=== PATIENT | male | born 1945 | race Caucasian/White ===

== ENCOUNTER → 2018-12-06 09:16 | Outpatient (CLI) | payer OTHER, SELFPAY ==
--- NOTE | 2018-12-06 | DI.ECHO.S_ITS ---
[facility]---------+ [facility] +---------+ : : [address] : : : : [place] : : : : [phone] : : : : Phone: [phone]+ Echocardiogram Report + + :Name: YENY SANDERS Study Date: 12/06/2018 Height: 69 in : :[facility] Exam Location: [facility] Weight: 220 lb : : Gender: Male BSA: 2.2 m2 : :: 1945 Age: 73 yrs BP: 160/80 mmHg: :Reason For Study: Murmur : :Ordering Physician: Govind : :Mey Szymanski Performed By: Abby Page : :Referring: GOVIND TAPIA : + + Interpretation Summary Patient is atrially paced and ventricularly paced at a heart rate of 60 bpm. Normal left ventricular size; left ventricular thickness is at the upper limit of normal. There is mild dyssynchrony noted due to RV pacing. Ejection fraction is estimated at 50-55%. There is moderate left atrial enlargement. Otherwise normal chamber sizes. There is aortic sclerosis without stenosis. There is a pacing lead traversing the tricuspid valve with trace estimated tricuspid regurgitation. There is an incidentally noted hypoechoic space anterior to the heart. It is best appreciated on apical views and is most consistent with subcutaneous cyst or small lung cyst. There is no prior study available for comparison. Procedure: A two-dimensional transthoracic echocardiogram with color flow and Doppler was performed. The study quality was technically adequate. There is no prior echocardiogram noted for this patient. The patient has a paced rhythm. Left Ventricle: The left ventricle is normal in size. Left ventricular wall thickness is at the upper limits of normal. The ejection fraction is estimated to be 50-55%. There is a slight dyssynchronous contraction pattern due to the paced rhythm. Diastolic function could not be accurately assessed due to paced rhythm. Right Ventricle: The right ventricle is mildly dilated. There is a pacemaker lead in the right ventricle. The right ventricular systolic function is normal. Atria: The left atrium is moderately dilated. Right atrial size is normal. There is no Doppler evidence for an interatrial shunt. Mitral Valve: The mitral valve leaflets appear mildly thickened, but open well. There is trace mitral regurgitation. Aortic Valve: The aortic valve is trileaflet. The aortic valve opens well. There is trace aortic regurgitation. Tricuspid Valve: The tricuspid valve is normal in structure and function. There is trace tricuspid regurgitation. The right ventricular systolic pressure is estimated to be at least 30 mmHg based on an estimated right atrial pressure of 8 mm Hg. Pulmonic Valve: The pulmonic valve is not well visualized. There is trace pulmonic regurgitation. Great Vessels: The aortic root is normal size. The ascending aorta is mild- moderately enlarged. The pulmonary artery is not well visualized, but is probably normal size. The IVC is dilated (diameter is greater than 2.1 cm) yet it collapses greater than 50% with a sniff. This suggests a right atrial pressure of 8 mm Hg. Pericardium/ Pleura There is no pericardial effusion. MMode/2D Measurements & Calculations LVIDd: 4.5 cm LVOT diam: 2.3 cm LVIDs: 3.5 cm Ao root diam: 3.6 cm FS: 23.2 % asc Aorta Diam: 4.2 cm EPSS: 0.78 cm IVSd: 0.94 cm LVPWd: 1.1 cm LV posey. diameter/BSA (cm/m^2): 2.1 LV sys. diameter/BSA (cm/m^2): 1.6 LA A2 area: 24.0 cm2 RA long axis: 4.4 cm LA A4 area: 25.7 cm2 RA area: 18.1 cm2 LA length (vol): 5.8 cm RA vol: 63.6 ml LA vol: 90.3 ml RA : 29.6 ml/m2 LA vol index: 42.0 ml/m2 IVC diam: 2.2 cm RVD1 (basal): 4.4 cm RVD2 (mid): 4.3 cm TAPSE: 2.6 cm Doppler Measurements & Calculations Ao V2 max: 106.4 cm/sec LVOT Max Wilbur: 70.2 cm/sec Ao V2 mean: 77.1 cm/sec LV V1 max P.0 mmHg Ao max P.5 mmHg LV V1 VTI: 16.7 cm Ao mean P.6 mmHg JUAN(I,D): 2.8 cm2 Ao V2 VTI: 24.4 cm JUAN(V,D): 2.7 cm2 sev ratio: 0.69 JUAN indexed to BSA (cm^2/m^2): 1.3 MV E max wilbur: 70.4 cm/sec TR max wilbur: 234.1 cm/sec MV A max wilbur: 62.0 cm/sec TR max P.0 mmHg MV E/A: 1.1 PA V2 max: 60.5 cm/sec MV dec time: 0.21 sec PA V2 mean: 39.4 cm/sec MV P1/2t: 65.1 msec PA mean P.70 mmHg PA Accel Time: 0.06 sec MV P1/2t max wilbur: 70.5 cm/sec SV(LVOT): 67.7 ml MVA(P1/2t): 3.4 cm2 Electronically signed by: Govind Tapia M.D. on Reading Physician:12/07/2018 07:19 PM
== END ==
PROVIDERS: Visit Provider Internal Medicine
DX: R01.1 Cardiac murmur, unspecified (principal); I77.89 Other specified disorders of arteries and arterioles
CPT/HCPCS: 93306

== ENCOUNTER 2020-05-26 19:09 | Observation (INO) | payer OTHER, SELFPAY ==
[2020-05-26] VITALS (30 sets, daily range): BP systolic 97–126; BP diastolic 57–84; PULSE 100–109; RESP 11–28; TEMP 37.5; O2SAT 94–100; BMI 31.4
--- NOTE | 2020-05-26 19:19 | DI.RAD.S_ITS ---
PROCEDURE: XR CHEST 1V INDICATIONS: chest pain TECHNIQUE: One view of the chest was acquired. COMPARISON: [facility], , CHEST 1 VIEW, 06/07/2015, 12:04. FINDINGS: Surgical changes and devices: A left chest wall pacer is seen with intact leads.. Lungs and pleura: There is bibasilar atelectasis. No focal consolidation or mass. No pneumothorax or pleural effusion. No significant pulmonary vascular congestion. Mediastinum: Cardiomegaly is unchanged. Bones and chest wall: No suspicious bony lesions. Overlying soft tissues appear unremarkable. IMPRESSION: 1. Right basilar atelectasis. 2. Stable cardiomegaly. Dictated by: Chinedu White M.D. on 05/26/2020 at 19:52 Approved by: Chinedu White M.D. on 05/26/2020 at 19:54
--- NOTE | 2020-05-26 19:25 | ED_ITS ---
HPI - Chest Pain General Chief Complaint: Arrhythmia/Palpitations Stated Complaint: AFIB Time Seen by Provider: 05/26/20 19:18 Source: patient and EMS Limitations: no limitations History of Present Illness HPI narrative: Patient is a 74-year-old male with history of AFib and pacemaker presenting with chest discomfort and palpitations. He says it started around 430 or 5:00 a.m. this morning and woke him from his sleep. It has been ongoing for out today. He states now that he is in ER he overall feels better however he has a wide complex tachycardia paced rhythm on the monitor. It was initially intermittent however it is very persistent now. He says he still feels it. He actually says he has had this in the past but usually takes an extra dose of flecainide and resolves. This time it is not resolving. complaint: chest pain Onset (ago): day(s) (1) Duration: intermittent Treatments prior to arrival chest pain: none Related Data Home Medications Medication Instructions Recorded Confirmed clonazepam 0.5 mg PO TID PRN MDD 3 05/26/20 05/26/20 flecainide 150 mg PO Q12H 05/26/20 05/26/20 levothyroxine 137 mcg PO DAILY 05/26/20 05/26/20 metoprolol tartrate 50 mg PO BID 05/26/20 05/26/20 simvastatin 20 mg PO BEDTIME 05/26/20 05/26/20 tamsulosin 0.4 mg PO DAILY 05/26/20 05/26/20 Allergies Allergy/AdvReac Type Severity Reaction Status Date / Time No Known Drug Allergies Allergy Verified 05/26/20 19:49 Review of Systems Review of Systems Narrative: GENERAL: Denies chills, fatigue, malaise, fever, sweats, travel HEENT: Denies sinus pain, ear pain, sore throat, difficulty swallowing, neck pain RESPIRATORY: Denies dyspnea, cough, wheezing, hemoptysis, sputum. CARDIOVASCULAR: See HPI GASTROINTESTINAL: Denies nausea, vomiting, abdominal pain, diarrhea, constipation, melena. : Denies dysuria, frequency, incontinence, hematuria, urinary retention, flank pain. MUSCULOSKELETAL: Denies weakness, joint pain, or bony pain SKIN: No rash, no erythema, no pruritus NEUROLOGIC: Denies weakness, dizziness, headache, numbness, change in speech, confusion PSYCHIATRIC: No concerning psychosocial issues. 12 point review of systems is negative except for those stated above and HPI Patient History Medical History (Updated 05/27/20 @ 00:10 by BRENDA Kramer) Brain tumor History of thyroid irradiation Hypothyroidism Kidney stones Paroxysmal atrial fibrillation Surgical History (Updated 05/27/20 @ 00:10 by BRENDA Kramer) History of cataract surgery History of craniotomy History of cystoscopy History of hand surgery History of knee surgery History of lithotripsy History of permanent cardiac pacemaker placement Family History (Updated 05/27/20 @ 00:12 by BRENDA Kramer) Father Pneumonia Mother Cancer Brother Cancer Social History Smoking Status: Never smoker Exam Initial Vital Signs Initial Vital Signs: Vital Signs Temperature 99.5 F 05/26/20 19:19 Pulse Rate 105 H 05/26/20 19:19 Respiratory Rate 20 05/26/20 19:19 Blood Pressure 126/78 05/26/20 19:19 Pulse Oximetry 99 05/26/20 19:19 GENERAL: Alert pleasant older gentleman no acute distress HEENT: Head atraumatic,EOMI, pupils reactive, face symmetric, [moist] mucous membranes CARDIOVASCULAR: Regular no murmurs RESPIRATORY: Breath sounds equal bilaterally, no wheezes rales or rhonchi. ABDOMEN: Soft, nontender. Normoactive bowel sounds all 4 quadrants. No guarding or rebound. : No CVA tenderness EXTREMITIES: Normal range of motion, no clubbing or edema. Neurovascularly intact NEUROLOGICAL: Alert and oriented x4.Normal gait and speech. Cranial nerves II through XII grossly intact. SKIN: Warm, dry, no laceration, no petechiae, no rashes or lesions. Course Orders Ordered: ED Orders 05/26/20 19:19 XR chest 1V Stat EKG-12 Lead Stat 05/26/20 19:25 Complete Blood Count AUTO DIFF Stat Comprehensive Metabolic Panel Stat Lipase Stat Magnesium Stat NT-proBNP (BNP-Adult 18+) Stat Partial Thromboplastin Time Stat Prothrombin Time INR Stat Troponin & CK Cardiac Panel Stat 05/26/20 19:37 COVID19 Stat Acetaminophen (Acetaminophen 325 Mg Tablet) 650 mg PO Q6HR PRN PRN Reason: Fever/Mild Pain (1-3) Al Hydrox/Mg Hydrox/Simethicone (Mag Hydrox/Alum/Simeth 30 Ml Udc) 30 ml PO Q6HR PRN PRN Reason: Dyspepsia Aspirin (Aspirin Ec 81 Mg Tablet) 81 mg PO DAILY MUNIR Bisacodyl (Bisacodyl 10 Mg Supp) 10 mg AK DAILY PRN PRN Reason: Constipation Calcium Carbonate (Calcium Carbonate 500 Mg Tab) 1,000 mg PO Q4HR PRN PRN Reason: Dyspepsia Clonazepam (Clonazepam 0.5 Mg Tablet) 0.5 mg PO TID PRN PRN Reason: Anxiety Docusate Sodium (Docusate 100 Mg Capsule) 100 mg PO BID PRN PRN Reason: Constipation Flecainide Acetate (Flecainide 100 Mg Tablet) 150 mg PO Q12H [facility] Heparin Sodium (Porcine) (Heparin 5,000 Unit/Ml Vial) 5,000 unit SUBCUT BID [facility] Levothyroxine Sodium (Levothyroxine 137 Mcg Tablet) 137 mcg PO DAILY [facility] Morphine Sulfate (Morphine 2 Mg/Ml Inj) 2 mg IV Q4HR PRN PRN Reason: Chest Pain Naloxone HCl (Naloxone 0.4 Mg/Ml Vial) 0.2 mg IV Q2MIN PRN PRN Reason: Opiate Reversal Nitroglycerin (Nitroglycerin 0.4 Mg Sl Tab) 0.4 mg SL [id number] PRN PRN Reason: Chest Pain Sennosides (Sennosides 8.6 Mg Tablet) 17.2 mg PO BEDTIME PRN PRN Reason: Constipation Simvastatin (Simvastatin 20 Mg Tablet) 20 mg PO BEDTIME MUNIR Tamsulosin HCl (Tamsulosin 0.4 Mg Capsule) 0.4 mg PO DAILY MUNIR Discontinued Medications Diltiazem HCl (Diltiazem 5 Mg/Ml Sdv) 10 mg IV NOW ONE Stop: 05/26/20 19:56 Last Admin: 05/26/20 20:01 Dose: 10 mg Documented by: RASHEED Furosemide (Furosemide 40 Mg/4 Ml Vial) 40 mg IV NOW ONE Stop: 05/26/20 22:36 Last Admin: 05/26/20 23:06 Dose: 40 mg Documented by: RASHEED Sodium Chloride (Normal Saline 0.9%) 1,000 mls @ 150 mls/hr IV CONT MUNIR Stop: 05/26/20 22:54 Last Infusion: 05/26/20 22:00 Dose: 150 mls/hr Documented by: Admin: 05/26/20 19:30 Dose: 150 mls/hr Documented by: MARIANA Metoprolol Tartrate (Metoprolol Tartrate 5 Mg/5 Ml Inj) 5 mg IV NOW ONE Stop: 05/26/20 19:32 Last Admin: 05/26/20 19:42 Dose: 5 mg Documented by: ELLIE Metoprolol Tartrate (Metoprolol Tartrate 5 Mg/5 Ml Inj) 5 mg IV NOW ONE Stop: 05/26/20 20:16 Last Admin: 05/26/20 20:35 Dose: 5 mg Documented by: ELLIE Vital Signs Vital signs: Vital Signs - 8 hr 05/26/20 19:19 05/26/20 19:20 05/26/20 19:25 Temperature 99.5 F Pulse Rate 105 H 100 H 107 H Respiratory Rate 20 21 20 Blood Pressure 126/78 Pulse Oximetry 99 98 100 05/26/20 19:26 05/26/20 19:30 05/26/20 19:31 Temperature Pulse Rate 107 H 101 H 109 H Respiratory Rate 14 20 28 H Blood Pressure 120/57 L 97/61 Pulse Oximetry 99 99 94 05/26/20 19:35 05/26/20 19:40 05/26/20 19:41 Temperature Pulse Rate 104 H 104 H 104 H Respiratory Rate 21 23 20 Blood Pressure 109/65 Pulse Oximetry 99 98 98 05/26/20 19:45 05/26/20 19:50 05/26/20 19:55 Temperature Pulse Rate 104 H 104 H 104 H Respiratory Rate 20 19 19 Blood Pressure 109/59 L Pulse Oximetry 97 97 97 05/26/20 20:00 05/26/20 20:01 05/26/20 20:05 Temperature Pulse Rate 104 H 104 H 104 H Respiratory Rate 21 21 Blood Pressure 113/63 113/63 Pulse Oximetry 98 97 05/26/20 20:10 05/26/20 20:15 05/26/20 20:20 Temperature Pulse Rate 104 H 104 H 104 H Respiratory Rate 22 22 20 Blood Pressure 103/65 Pulse Oximetry 98 97 96 05/26/20 20:25 05/26/20 20:30 05/26/20 20:35 Temperature Pulse Rate 104 H 104 H 104 H Respiratory Rate 20 24 20 Blood Pressure 98/68 Pulse Oximetry 97 98 97 05/26/20 20:45 05/26/20 21:00 05/26/20 21:16 Temperature Pulse Rate 104 H 104 H 106 H Respiratory Rate 23 11 L 18 Blood Pressure 107/65 109/64 111/73 Pulse Oximetry 97 97 97 05/26/20 21:30 05/26/20 21:45 05/26/20 22:00 Temperature Pulse Rate 108 H 109 H 109 H Respiratory Rate 16 27 H 16 Blood Pressure 105/71 109/84 Pulse Oximetry 96 96 97 05/26/20 22:01 05/26/20 22:30 Temperature Pulse Rate 109 H 107 H Respiratory Rate 18 23 Blood Pressure 106/70 112/71 Pulse Oximetry 98 97 MDM - Chest Pain Lab Data Attestation: I reviewed the patient's lab results. Result diagrams: 05/26/20 19:25 05/26/20 19:25 Labs: Lab Results 05/26/20 05/26/20 05/26/20 Range/Units 19:25 19:25 19:25 WBC 4.5 (4.5-11.0) X10^3/uL RBC 3.55 L (4.5-5.9) X10^6/uL Hgb 12.1 L (13.5-17.5) g/dL Hct 35.5 L (41-53) % MCV 100.1 H (80-100) fL MCH 34.2 H (26-34) PG MCHC 34.1 (30-36) % RDW 15.1 H (11.6-14.8) % Plt Count 190 (150-400) X10^3/uL Neut % (Auto) 68.3 (50-75) % Lymph % (Auto) 16.2 L (25-40) % Weber % (Auto) 12.6 (3-14) % Eos % (Auto) 1.8 L (2-4) % Baso % (Auto) 1.1 (0-2) % Neut # (Auto) 3100 (8187-3792) /uL Lymph # (Auto) 700 L (8357-0412) /uL Weber # (Auto) 600 (0-900) /uL Eos # (Auto) 100 (0-450) /uL Baso # (Auto) 100 (0-100) /uL PT 12.6 (10.1-12.7) SECONDS INR 1.1 (0.9-1.3) APTT 30 (26.4-36.2) SECONDS Sodium (137-145) mmol/L Potassium (3.4-5.1) mmol/L Chloride (98-107) mmol/L Carbon Dioxide (22-32) mmol/L BUN (9-20) mg/dL Creatinine (0.66-1.25) mg/dL Estimated GFR (>60) mL/min BUN/Creatinine Ratio (6-22) Glucose (80-110) mg/dL Calcium (8.4-10.2) mg/dL Magnesium (1.6-2.3) mg/dL Total Bilirubin (0.2-1.3) mg/dL AST (17-59) IU/L ALT (<50) IU/L Alkaline Phosphatase (38-126) U/L Total Creatine Kinase (55-170) U/L CK-MB (CK-2) CK-MB (CK-2) Rel Index Troponin I (0.01-0.034) ng/mL NT-Pro-B Natriuret Pep 6370 H (<450) pg/mL Total Protein (6.3-8.2) g/dL Albumin (3.5-5.0) g/dL Globulin (1.7-4.1) g/dL Albumin/Globulin Ratio (1.0-2.8) Lipase (23-300) U/L COVID-19 PCR (Negative) 05/26/20 05/26/20 05/26/20 Range/Units 19:25 19:25 19:37 WBC (4.5-11.0) X10^3/uL RBC (4.5-5.9) X10^6/uL Hgb (13.5-17.5) g/dL Hct (41-53) % MCV (80-100) fL MCH (26-34) PG MCHC (30-36) % RDW (11.6-14.8) % Plt Count (150-400) X10^3/uL Neut % (Auto) (50-75) % Lymph % (Auto) (25-40) % Weber % (Auto) (3-14) % Eos % (Auto) (2-4) % Baso % (Auto) (0-2) % Neut # (Auto) (3729-9987) /uL Lymph # (Auto) (5374-8617) /uL Weber # (Auto) (0-900) /uL Eos # (Auto) (0-450) /uL Baso # (Auto) (0-100) /uL PT (10.1-12.7) SECONDS INR (0.9-1.3) APTT (26.4-36.2) SECONDS Sodium 139 (137-145) mmol/L Potassium 4.6 (3.4-5.1) mmol/L Chloride 104 (98-107) mmol/L Carbon Dioxide 32 (22-32) mmol/L BUN 23 H (9-20) mg/dL Creatinine 1.08 (0.66-1.25) mg/dL Estimated GFR > 60.0 (>60) mL/min BUN/Creatinine Ratio 21.3 (6-22) Glucose 92 (80-110) mg/dL Calcium 9.1 (8.4-10.2) mg/dL Magnesium 2.2 (1.6-2.3) mg/dL Total Bilirubin 0.7 (0.2-1.3) mg/dL AST 19 (17-59) IU/L ALT 16 (<50) IU/L Alkaline Phosphatase 56 (38-126) U/L Total Creatine Kinase 35 L (55-170) U/L CK-MB (CK-2) TNP CK-MB (CK-2) Rel Index TNP Troponin I < 0.012 (0.01-0.034) ng/mL NT-Pro-B Natriuret Pep (<450) pg/mL Total Protein 6.3 (6.3-8.2) g/dL Albumin 3.8 (3.5-5.0) g/dL Globulin 2.5 (1.7-4.1) g/dL Albumin/Globulin Ratio 1.5 (1.0-2.8) Lipase 74 (23-300) U/L COVID-19 PCR Negative (Negative) Imaging Data Chest x-ray: Radiologist's Impression: PROCEDURE: XR CHEST 1V INDICATIONS: chest pain TECHNIQUE: One view of the chest was acquired. COMPARISON: [facility], CHEST 1 VIEW, 06/07/2015, 12:04. FINDINGS: Surgical changes and devices: A left chest wall pacer is seen with intact leads.. Lungs and pleura: There is bibasilar atelectasis. No focal consolidation or mass. No pneumothorax or pleural effusion. No significant pulmonary vascular congestion. Mediastinum: Cardiomegaly is unchanged. Bones and chest wall: No suspicious bony lesions. Overlying soft tissues appear unremarkable. IMPRESSION: 1. Right basilar atelectasis. 2. Stable cardiomegaly. Dictated by: Chniedu White M.D. on 05/26/2020 at 19:52 Approved by: Chinedu White M.D. on 05/26/2020 at 19:54 [facility] Narrative Medical decision making narrative: Monitor an initial EKG concerning for intermittent V-tach. Magnet placed however S still appears to be paced even with the magnet and but does look like V-tach. 1929 Dr. West called with concerns for possible V-tach. He is reviewed EKGs. He states it is actually atrial fibrillation with a paced rhythm recommends IV Lopressor to help slow rate down. 2014 he is reconsulted there has been no change with IV Lopressor or IV Cardizem at this time he recommends repeating IV Lopressor. There is again no change. Patient overall remains awake alert oriented blood pressure remains stable. 2054-he has reviewed patient's chart he states patient is 99% paced in the atrium and ventricle. He still believes this to be recurrent atrial fibrillation with RVR and is paced. He states patient is on 150 mg of flecainide twice a day. Unfortunately the patient is not on any anticoagulation it is unclear why he is not anticoagulated patient is unable to explain to me why he is not anticoagulated either. If able right recommends pacemaker interrogation. He states patient may be placed in observation for monitoring or may be discharged home with outpatient follow-up. Attempt at pacemaker interrogation however our interrogator is not working. Patient is feeling better but is still having some discomfort in his chest. His heart rate seems to increasing from 104-109 in still a wide complex. Repeat T EKG does still show an atrial paced rhythm. He takes his home medications in the ED the flecainide metoprolol and clonazepam. At this time patient will be placed in observation. Jorge GUTIERREZ accepts patient for observation Discharge Plan Departure Patient Disposition: Admitted as Observation Clinical Impression: Atrial fibrillation with RVR Admit Date/Time: 05/26/20 22:35 Admit Provider: Aaron Elizabeth
[2020-05-26] MEDS: SODIUM CHLORIDE 0.9% 1,000 ML 150 ML IV (19:30)
[2020-05-26 19:39] LABS: Add Manual Diff / Slide Review NO; Basophils Absolute Auto 100 /uL (0-100); Basophils Percent Auto 1.1 % (0-2); Eosinophils Absolute Auto 100 /uL (0-450); Eosinophils Percent Auto 1.8 % (2-4); Hematocrit 35.5 % (41-53); Hemoglobin 12.1 g/dL (13.5-17.5); Lymphocytes Absolute Auto 700 /uL (1100-4500); Lymphocytes Percent Auto 16.2 % (25-40); Mean Corpuscular HGB Conc 34.1 % (30-36); Mean Corpuscular Hemoglobin 34.2 PG (26-34); Mean Corpuscular Volume 100.1 fL (80-100); Monocytes Absolute Auto 600 /uL (0-900); Monocytes Percent Auto 12.6 % (3-14); Neutrophils Absolute Auto 3100 /uL (1500-7000); Neutrophils Percent Auto 68.3 % (50-75); Platelet Count 190 X10^3/uL (150-400); Red Blood Cell Count 3.55 X10^6/uL (4.5-5.9); Red Cell Distribution Width 15.1 % (11.6-14.8); White Blood Cell Count 4.5 X10^3/uL (4.5-11.0)
[2020-05-26] MEDS: METOPROLOL TARTRATE 5 MG/5 ML INJ IV ×2 (19:42→20:35)
[2020-05-26 19:47] LABS: INR 1.1 (0.9-1.3); Prothrombin Time 12.6 SECONDS (10.1-12.7)
[2020-05-26 19:50] LABS: PTT Partial Thromboplastin Tim 30 SECONDS (26.4-36.2)
--- NOTE | 2020-05-26 19:55 | PC.NURSE ---
5mg metoprolol given slow IVP without effect. Dr Menjivar aware.
[2020-05-26] MEDS: dilTIAZem 5 MG/ML SDV 10 MG IV (20:01)
[2020-05-26 20:03] LABS: Alanine Aminotransferase 16 IU/L (<50); Albumin 3.8 g/dL (3.5-5.0); Albumin Globulin Ratio 1.5 (1.0-2.8); Alkaline Phosphatase 56 U/L (38-126); Aspartate Aminotransferase 19 IU/L (17-59); BUN Creatinine Ratio 21.3 (6-22); Bilirubin Total 0.7 mg/dL (0.2-1.3); Blood Urea Nitrogen 23 mg/dL (9-20); Calcium 9.1 mg/dL (8.4-10.2); Carbon Dioxide 32 mmol/L (22-32); Chloride 104 mmol/L (98-107); Creatine Kinase 35 U/L (55-170); Estimated Glomerular Filt Rate > 60.0 mL/min (>60); Globulin 2.5 g/dL (1.7-4.1); Glucose 92 mg/dL (80-110); HEMOLYSIS < 15 (0-50); Lipase 74 U/L (23-300); Potassium 4.6 mmol/L (3.4-5.1); Sodium 139 mmol/L (137-145); Total Protein 6.3 g/dL (6.3-8.2)
[2020-05-26 20:06] LABS: Magnesium 2.2 mg/dL (1.6-2.3)
[2020-05-26 20:14] LABS: COVID19 -Nasal RAPID Negative (Negative)
[2020-05-26 20:15] LABS: Troponin I < 0.012 ng/mL (0.01-0.034)
[2020-05-26 20:27] LABS: NT-proBNP (BNP-Adult 18+) 6370 pg/mL (<450)
--- NOTE | 2020-05-26 20:57 | PC.NURSE ---
Pt remains wide complex tachycardia rate 105 despite meds-- see MAR. Pt without distress. Attempting to interrogate [employer] pacemaker, device is not working. Rep from [employer] on the phone now to troubleshoot.
--- NOTE | 2020-05-26 21:52 | PC.NURSE ---
Pt given snack and drink with ok from Dr Menjivar
--- NOTE | 2020-05-26 22:14 | PC.NURSE ---
Addendum entered by Cira Cantu R.N. 05/27/20 00:14: Also given 0.5mg home clonazepam prn anxiety per verbal order from Dr Menjivar Original Note: Pt given routine home medications per verbal order from Dr Menjivar: 150mg Flecanide flomax 50mg metoprolol 20mg simvastatin
--- NOTE | 2020-05-26 23:00 | DI.ECHO.S_ITS ---
[facility] +---------+ [facility] +---------+ : : [address] : : [place] : : : : [phone] : : : : Phone: [phone]---------+ Echocardiogram Report + + :Name: YENY SANDERS Study Date: 05/27/2020 Height: 69 in : :[facility] Weight: 213 lb : : Gender: Male BSA: 2.1 m2 : :: 1945 Age: 74 yrs BP: 100/62 mmHg: :Reason For Study: ATRIAL FIBRILLATION : :Ordering Physician: ADRIANA, : :MARISSA GUTIERREZ Performed By: Damaris Loya : :Referring: MARISSA WRIGHT : + + Interpretation Summary Normal left ventricle size with ejection fraction 40-45%. There is apical dyskinesis. Septal motion is consistent with conduction abnormality. Mildly dilated left atrium. Mild to moderate mitral regurgitation. Mild to moderate tricuspid regurgitation. Mildly enlarged ascending aorta. Comparison is made with the echocardiogram of 12/03/2019, LV function is worsen and apical dyskinetic is new. Procedure: A two-dimensional transthoracic echocardiogram with color flow and Doppler was performed. The study quality was technically adequate. Comparison is made with the echocardiogram of 12/03/2019. The patient has a paced rhythm. Left Ventricle: The left ventricle is normal in size and wall thickness. The ejection fraction is estimated to be 40-45%. There is apical dyskinesis. Septal motion is consistent with conduction abnormality. There are no other obvious focal wall motion abnormalities. Diastolic function could not be accurately assessed due to paced rhythm. Right Ventricle: The right ventricle is normal in size and function. There is a pacemaker lead in the right ventricle. Atria: The left atrium is mildly dilated. Right atrial size is normal. There is a catheter/pacemaker lead seen in the right atrium. There is no Doppler evidence for an interatrial shunt. Mitral Valve: The mitral valve leaflets appear mildly thickened, but open well. There is mild to moderate mitral regurgitation. Aortic Valve: The aortic valve opens well. The aortic valve is slightly calcified. There is no aortic valve stenosis. There is trace aortic regurgitation. Tricuspid Valve: The tricuspid valve leaflets are thin and pliable. There is mild to moderate tricuspid regurgitation. Pulmonic Valve: The pulmonic valve leaflets are thin and pliable; valve motion is normal. There is mild pulmonic regurgitation. Great Vessels: The aortic root is normal size. The ascending aorta is mildly enlarged. The IVC is of normal diameter and collapses greater than 50% with a sniff. This suggests a low right atrial pressure of 3 mm Hg. Pericardium/ Pleura There is no pericardial effusion. There is no pleural effusion. MMode/2D Measurements & Calculations LVIDd: 5.3 cm LVOT diam: 2.1 cm LVIDs: 4.1 cm Ao root diam: 3.4 cm FS: 23.4 % asc Aorta Diam: 3.8 cm EPSS: 1.8 cm Ao Arch Diam (Prox Trans): 3.6 cm IVSd: 1.1 cm LVPWd: 1.0 cm LV posey. diameter/BSA (cm/m^2): 2.5 LV sys. diameter/BSA (cm/m^2): 1.9 LA A2 area: 25.8 cm2 RA long axis: 4.7 cm LA A4 area: 23.9 cm2 RA area: 16.3 cm2 LA length (vol): 6.0 cm RA vol: 47.9 ml LA vol: 87.1 ml RA : 22.6 ml/m2 LA vol index: 41.0 ml/m2 IVC diam: 1.8 cm RVD1 (basal): 3.7 cm LVAd ap4: 42.3 cm2 TAPSE: 1.7 cm LVAs ap4: 30.7 cm2 LVLs ap4: 8.7 cm Doppler Measurements & Calculations Ao V2 max: 106.9 cm/sec LVOT Max Wilbur: 73.3 cm/sec Ao V2 mean: 68.2 cm/sec LV V1 max P.2 mmHg Ao max P.6 mmHg LV V1 VTI: 17.2 cm Ao mean P.2 mmHg JUAN(I,D): 2.6 cm2 Ao V2 VTI: 22.8 cm JUAN(V,D): 2.4 cm2 sev ratio: 0.76 JUAN indexed to BSA (cm^2/m^2): 1.2 MV E max wilbur: 73.9 cm/sec TR max wilbur: 294.2 cm/sec MV A max wilbur: 24.1 cm/sec TR max P.9 mmHg MV E/A: 3.1 PA V2 max: 40.3 cm/sec Med Peak E' Wilbur: 3.3 cm/sec PA V2 mean: 28.0 cm/sec E/E' med: 22.5 PA mean P.36 mmHg Lat Peak E' Wilbur: 6.0 cm/sec PA pr(Accel): 20.8 mmHg E/E' lat: 12.2 E/e' average: 17.4 MV dec time: 0.23 sec MR PISA: 2.7 cm2 SV(ANNA): 59.3 ml MR flow rate: 99.7 cm3/sec MR PISA radius: 0.66 cm Electronically signed by: Bull Hernandez on Reading Physician:05/27/2020 04:14 PM
[2020-05-26] MEDS: FUROSEMIDE 40 MG/4 ML VIAL IV (23:06)
--- NOTE | 2020-05-26 23:49 | P.HP_ITS ---
History of Present Illness History of Present Illness Date Patient Seen: 05/26/20 Time Patient Seen: 23:11 Chief complaint: AFIB Narrative: Mr. Hal Damon is a 74-year-old male with a past medical history significant for paroxysmal atrial fibrillation, av sequential pacemaker, acquired hypothyroidism (s/p thyroid radiation for hyperthyroidism) hyperlipi demia and kidney stones who presents to the ER with chest discomfort and palpitations. The patient reports waking at 5:00 a.m. from sleep with chest discomfort and palpitations. He has had previous such episodes associated with atrial fibrillation with the last episode 2 months ago and prior to that 6 months ago. He states on the 2 previous episodes the rhythm and resolved within 3-4 hours following receiving additional flecainide in the ER on 1 occasion and his director of graduate admissions Dr. Mathias instructed him to take an extra half tablet of 150 mg flecainide. The patient presents tonight due to the persistence of the rhythm since early this morning. The patient describes chest discomfort is m idsternal and nonradiating and nonpleuritic. He denies associated shortness of breath, nausea vomiting or diaphoresis. He states he continued his normal activities throughout the day without exacerbation of chest pain though he describes himself as minimally active. He does endorse waking in the morning with wheezing and productive cough. He denies a smoking history. He has had no recent complaints of cold or flu symptoms and has had no known COVID-19 exposures. He denies headaches or dizziness has had no visual changes. He denies nasal congestion or sore throat. He has had no neck or back pain. He has had chest pain and palpitations as above. He denies shortness of breath, has a morning cough and wheeze which resolved without treatment. He denies epigastric or abdominal pain, has no nausea vomiting, denies diarrhea or constipation. He has urinary difficulty with slow stream and small voids taking tamsulosin daily. The patient is ambulatory and uses no assistive devices. Upon arrival to the ER the patient has temperature 99.5?, heart rate of 105, blood pressure 126/77, respirations of 20 saturating 99% on room air. A chest x-ray is obtained finding a right basilar atelectasis with stable cardiomyopathy. Initial monitor displaced a wide P tachycardia. Serial 12 lead EKG is obtained with the most recent revealing an AV paced rhythm at 100 the p.r. interval of 116 milliseconds, QRS 190 milliseconds, QTC of 337 milliseconds. On laboratory analysis the patient has white count of 4.5, hemoglobin of 12.1, hematocrit 35.5 and platelets 190. Has a PT of 12.4, INR 1.1 and a PTT of 30. His left quite all within normal limits with a potassium of 4.6 and magnesium of 2.2. He has a BUN of 23 and a creatinine of 1.08. His nonfasting glucose is 92. His liver functions all within normal limits. Has a total CK of 35 with a troponin of less than 0.012. His proBNP is elevated at 6370. COVID screening is negative. Dr. gomez cardiology is consulted through the ER reviewing his EKGs in the patient's chart. The director of graduate admissions's interpretation is that the patient has AFib with RVR with overlying pacemaker rhythm. In the ER the patient has received diltiazem 10 mg, metoprolol 5 mg x 2 and Lasix 40 mg. The patient is admitted to the hospital service for atrial f ibrillation with RVR chest pain and congestive heart failure. Patient History Medical History (Updated 05/27/20 @ 00:10 by BRENDA Kramer) Brain tumor History of thyroid irradiation Hypothyroidism Kidney stones Paroxysmal atrial fibrillation Surgical History (Updated 05/27/20 @ 00:10 by BRENDA Kramer) History of cataract surgery History of craniotomy History of cystoscopy History of hand surgery History of knee surgery History of lithotripsy History of permanent cardiac pacemaker placement Family & Social History Family History (Updated 05/27/20 @ 00:12 by BRENDA Kramer) Father Pneumonia Mother Cancer Brother Cancer Safety & Behavioral: Feels Safe in Current Yes Environment Tobacco & Substance use: Smoking Status Never smoker alcohol intake frequency a few times a month Substance Use Type does not use Meds Home Medications and Allergies Home Medications Medication Instructions Recorded Confirmed Type clonazepam 0.5 mg PO TID PRN MDD 3 05/26/20 05/26/20 History flecainide 150 mg PO Q12H 05/26/20 05/26/20 History levothyroxine 137 mcg PO DAILY 05/26/20 05/26/20 History metoprolol tartrate 50 mg PO BID 05/26/20 05/26/20 History simvastatin 20 mg PO BEDTIME 05/26/20 05/26/20 History tamsulosin 0.4 mg PO DAILY 05/26/20 05/26/20 History Allergies Allergy/AdvReac Type Severity Reaction Status Date / Time No Known Drug Allergies Allergy Verified 05/26/20 19:49 Review of Systems Review of Systems ROS: Yes All systems reviewed with the patient and are negative except as other jordan documented Exam Vital Signs (past 8 hours): - 05/26/20 19:19 05/26/20 19:20 05/26/20 19:25 Temperature 99.5 F Pulse Rate 105 H 100 H 107 H Respiratory Rate 20 21 20 Blood Pressure 126/78 Pulse Oximetry 99 98 100 05/26/20 19:26 05/26/20 19:30 05/26/20 19:31 Temperature Pulse Rate 107 H 101 H 109 H Respiratory Rate 14 20 28 H Blood Pressure 120/57 L 97/61 Pulse Oximetry 99 99 94 05/26/20 19:35 05/26/20 19:40 05/26/20 19:41 Temperature Pulse Rate 104 H 104 H 104 H Respiratory Rate 21 23 20 Blood Pressure 109/65 Pulse Oximetry 99 98 98 05/26/20 19:45 05/26/20 19:50 05/26/20 19:55 Temperature Pulse Rate 104 H 104 H 104 H Respiratory Rate 20 19 19 Blood Pressure 109/59 L Pulse Oximetry 97 97 97 05/26/20 20:00 05/26/20 20:01 05/26/20 20:05 Temperature Pulse Rate 104 H 104 H 104 H Respiratory Rate 21 21 Blood Pressure 113/63 113/63 Pulse Oximetry 98 97 05/26/20 20:10 05/26/20 20:15 05/26/20 20:20 Temperature Pulse Rate 104 H 104 H 104 H Respiratory Rate 22 22 20 Blood Pressure 103/65 Pulse Oximetry 98 97 96 05/26/20 20:25 05/26/20 20:30 05/26/20 20:35 Temperature Pulse Rate 104 H 104 H 104 H Respiratory Rate 20 24 20 Blood Pressure 98/68 Pulse Oximetry 97 98 97 05/26/20 20:45 05/26/20 21:00 05/26/20 21:16 Temperature Pulse Rate 104 H 104 H 106 H Respiratory Rate 23 11 L 18 Blood Pressure 107/65 109/64 111/73 Pulse Oximetry 97 97 97 05/26/20 21:30 05/26/20 21:45 05/26/20 22:00 Temperature Pulse Rate 108 H 109 H 109 H Respiratory Rate 16 27 H 16 Blood Pressure 105/71 109/84 Pulse Oximetry 96 96 97 05/26/20 22:01 05/26/20 22:30 05/26/20 23:00 Temperature Pulse Rate 109 H 107 H 108 H Respiratory Rate 18 23 18 Blood Pressure 106/70 112/71 100/62 Pulse Oximetry 98 97 96 Oxygen Delivery Method Room Air Narrative Exam Narrative: GENERAL APPEARANCE: well developed, obese male with a BMI of 31.5 lying semi recumbent on ER stretcher in no acute distress. HEENT: Normocephalic, PERRLA, conjunctiva clear, EOMs intact without nystagmus, no sinus tenderness to percussion, no rhinorrhea, mucous membranes are moist and pink without lesions or exudate. NECK/THYROID: neck supple, no JVD, no carotid bruit, no thyromegaly, trachea midline. LYMPH NODES: no cervical or supraclavicular lymphadenopathy. SKIN: [place], warm and dry, no visible lesions, rashes, ulcerations or petechiae. HEART: Tachycardic rate with regular rhythm, S1-S2, no murmur, no rubs or gallops, brisk capillary refill, trace to 1+ edema LUNGS: Diminished breath sounds bibasilar, no coarseness crackles or wheezing, no cough present CHEST: Symmetrical movement, no accessory muscle use, good tidal volume, no pain to AP or lateral compression. ABDOMEN: Soft, no distention, no abdominal tenderness, no guarding or peritoneal signs, no organomegaly, no flank or suprapubic tenderness, active bowel tones. EXTREMITIES: Venous stasis skin discoloration and spider varicosities bilateral lower extremity, moves all extremities, strength is 5/5 and symmetrical, no deformities or joint effusions. NEUROLOGIC: AAO x3, no focal or lateralizing neurologic deficits, cranial nerves II-XII grossly intact, sensation intact to light touch, hearing grossly normal to speech. PSYCH: Good judgment, cooperative, appropriate with stable behavior Objective Labs Result Diagrams: 05/26/20 19:25 05/26/20 19:25 Labs: Laboratory Results - last 24 hr 05/26/20 05/26/20 05/26/20 19:25 19:25 19:25 WBC 4.5 RBC 3.55 L Hgb 12.1 L Hct 35.5 L MCV 100.1 H MCH 34.2 H MCHC 34.1 RDW 15.1 H Plt Count 190 Neut % (Auto) 68.3 Lymph % (Auto) 16.2 L [place] % (Auto) 12.6 Eos % (Auto) 1.8 L Baso % (Auto) 1.1 Neut # (Auto) 3100 Lymph # (Auto) 700 L [place] # (Auto) 600 Eos # (Auto) 100 Baso # (Auto) 100 PT 12.6 INR 1.1 APTT 30 Sodium Potassium Chloride Carbon Dioxide BUN Creatinine Estimated GFR BUN/Creatinine Ratio Glucose Calcium Magnesium Total Bilirubin AST ALT Alkaline Phosphatase Total Creatine Kinase CK-MB (CK-2) CK-MB (CK-2) Rel Index Troponin I NT-Pro-B Natriuret Pep 6370 H Total Protein Albumin Globulin Albumin/Globulin Ratio Lipase COVID-19 PCR 05/26/20 05/26/20 05/26/20 19:25 19:25 19:37 WBC RBC Hgb Hct MCV MCH MCHC RDW Plt Count Neut % (Auto) Lymph % (Auto) [place] % (Auto) Eos % (Auto) Baso % (Auto) Neut # (Auto) Lymph # (Auto) [place] # (Auto) Eos # (Auto) Baso # (Auto) PT INR APTT Sodium 139 Potassium 4.6 Chloride 104 Carbon Dioxide 32 BUN 23 H Creatinine 1.08 Estimated GFR > 60.0 BUN/Creatinine Ratio 21.3 Glucose 92 Calcium 9.1 Magnesium 2.2 Total Bilirubin 0.7 AST 19 ALT 16 Alkaline Phosphatase 56 Total Creatine Kinase 35 L CK-MB (CK-2) TNP CK-MB (CK-2) Rel Index TNP Troponin I < 0.012 NT-Pro-B Natriuret Pep Total Protein 6.3 Albumin 3.8 Globulin 2.5 Albumin/Globulin Ratio 1.5 Lipase 74 COVID-19 PCR Negative Assessment & Plan Assessment & Plan narrative: This is a 74-year-old male with a past medical history significant for paroxysmal atrial fibrillation, av sequential pacemaker, acquired hypothyroidism (s/p thyroid radiation for hyperthyroidism) hyperlipidemia and kidney stones who presented to the ER with chest pain and palpitations and was found to be in atrial fibrillation with RVR with overriding pacemaker rhythm, chest pain and congestive failure. 1. Chest pain, acute, present on admission, active. -patient endorses chest discomfort mid chest described as pressure that is nonradiating and nonpleuritic. No associated symptoms of nausea or diaphoresis. -patient with prior episodes of chest pain and associated with atrial fibrillation however this episode has persisted. -total CK is 35, troponin is less than 0.012. ProBNP is elevated at 6370. Twelve lead EKG interpreted by Cardiology and has atrial fibrillation with RVR with paced beats. -chest pain is resolved with treatment of the arrhythmia. -will check serial troponins, will check free T4 and lipid panel. -order aspirin 81 mg daily 1st dose now. 2. Atrial fibrillation with RVR with superimposed pacemaker rhythm, chronic, active. -patient reports episodic atrial fibrillation with episodes occurring 2 months ago and 4 months prior to that. States that typically episodes terminate 3-4 hours with administration of add additional flecainide. -12 lead EKG reveals irregular paced rhythm, director of graduate admissions consult who interprets rhythm is atrial fibrillation with RVR with paced beats, recommends rate control. -patient received diltiazem 10 mg IV, metoprolol tartrate 5 mg x 2 IV with improvement in rhythm stability though remaining tachycardic at 109 beats per minute. -chest discomfort and palpitations have resolved. -will continue with home regimen of flecainide 150 mg by mouth every 12 hours. -order metoprolol tartrate 5 mg IV as needed for heart rate greater than 110. -ordered echocardiogram in the morning. 3. Chronic systolic heart failure with reduced ejection fraction, present on admission, stable. -patient complaints of chest pain and reports morning wheezing and productive cough clearing after rising for the day. No complaints of orthopnea, trace to 1+ bilateral lower extremity edema. -chest x-ray demonstrates stable cardiomegaly without pulmonary edema. -total CK is 35, troponin is less than 0.012. ProBNP is elevated 6370. -previous echocardiogram from December 2018: Normal LV size; left ventricular thickness is at the upper limit of normal. There is mild dyssynchrony noted due to RV pacing. Ejection fraction is estimated at 50-55%. -patient receive 40 mg of Lasix in the emergency department. -order Lasix 20 mg daily for gentle diuresis considering patient's soft blood pressure. 4. Acquired hypothyroidism, chronic, stable. -history of hyperthyroidism treated with medication and then it radiated precipitating hypothyroidism. -continue home regimen of levothyroxine 137 mcg daily. -will check free T4 level. 5. Dyslipidemia, chronic, stable -continue current regimen of simvastatin 20 mg daily. -will check a lipid panel. VTE prophylaxis: Heparin 5000 units subcu IV fluid: Saline lock Diet: Heart healthy, low-sodium Code status: Full code, patient designates his daughter please add to be his surrogate decision maker. The patient is admitted to the hospital with complaints of chest pain and palpitations with AFib with RVR requiring additional monitoring and interventions to chief rate control. Patient is admitted as observation with expected length of stay to be less than 2 midnights. COVID-19 COVID-19 status: Negative Result date/Date tested (Pos, Neg/Pending): 05/26/20 Scores GCS [place] coma scale eye opening: Spontaneous [place] coma scale verbal response: Orientated [place] coma scale motor response: Obey commands [place] coma scale total score: 15
[2020-05-27 00:14] VITALS: BMI 30.2
[2020-05-27 00:22] VITALS: BP 138/75; PULSE 92; RESP 16; TEMP 36.8; O2SAT 92
[2020-05-27] MEDS: HEPARIN 5,000 UNIT/ML VIAL 5000 UNIT SUBCUT ×2 (00:58→08:16)
--- NOTE | 2020-05-27 01:44 | PC.ADMIT ---
Patient admitted to room 205 per stretcher from ED at 0005. Is alert and oriented. [place] but states he left hearing aids at home. Breath sounds CTA with RA sat of 92%; placed on continuous oximetry. HRR but tachy in low 100's; placed on telemetry with tele reading of AV paced. Denies nausea. Up to bathroom and had BM. Chronic urinary frequency now with urgency related to be given Lasix prior to admission; using urinal in bed. Able to move himself in bed. Reports some imbalance problems and reports several falls in past 3 months so instructed to call for assistance prior to getting out of bed and bed alarm activated as fall risk score is moderate. Denied pain. Bilateral calf SCD's applied. Oriented to call light and bed controls. [id number] [facility] Admission Note: The patient,Hal Damon,74 y/o, was given written information regarding hospital policies, unit procedures and contact persons. Patient's smoking status: Never smoker. Vital Signs - 8 hr 05/26/20 19:19 05/26/20 19:20 05/26/20 19:25 Temperature 99.5 F Pulse Rate 105 H 100 H 107 H Respiratory Rate 20 21 20 Blood Pressure 126/78 Pulse Oximetry 99 98 100 05/26/20 19:26 05/26/20 19:30 05/26/20 19:31 Temperature Pulse Rate 107 H 101 H 109 H Respiratory Rate 14 20 28 H Blood Pressure 120/57 L 97/61 Pulse Oximetry 99 99 94 05/26/20 19:35 05/26/20 19:40 05/26/20 19:41 Temperature Pulse Rate 104 H 104 H 104 H Respiratory Rate 21 23 20 Blood Pressure 109/65 Pulse Oximetry 99 98 98 05/26/20 19:45 05/26/20 19:50 05/26/20 19:55 Temperature Pulse Rate 104 H 104 H 104 H Respiratory Rate 20 19 19 Blood Pressure 109/59 L Pulse Oximetry 97 97 97 05/26/20 20:00 05/26/20 20:01 05/26/20 20:05 Temperature Pulse Rate 104 H 104 H 104 H Respiratory Rate 21 21 Blood Pressure 113/63 113/63 Pulse Oximetry 98 97 05/26/20 20:10 05/26/20 20:15 05/26/20 20:20 Temperature Pulse Rate 104 H 104 H 104 H Respiratory Rate 22 22 20 Blood Pressure 103/65 Pulse Oximetry 98 97 96 05/26/20 20:25 05/26/20 20:30 05/26/20 20:35 Temperature Pulse Rate 104 H 104 H 104 H Respiratory Rate 20 24 20 Blood Pressure 98/68 Pulse Oximetry 97 98 97 05/26/20 20:45 05/26/20 21:00 05/26/20 21:16 Temperature Pulse Rate 104 H 104 H 106 H Respiratory Rate 23 11 L 18 Blood Pressure 107/65 109/64 111/73 Pulse Oximetry 97 97 97 05/26/20 21:30 05/26/20 21:45 05/26/20 22:00 Temperature Pulse Rate 108 H 109 H 109 H Respiratory Rate 16 27 H 16 Blood Pressure 105/71 109/84 Pulse Oximetry 96 96 97 05/26/20 22:01 05/26/20 22:30 05/26/20 23:00 Temperature Pulse Rate 109 H 107 H 108 H Respiratory Rate 18 23 18 Blood Pressure 106/70 112/71 100/62 Pulse Oximetry 98 97 96 05/27/20 00:22 Temperature 98.2 F Pulse Rate 92 H Respiratory Rate 16 Blood Pressure 138/75 Pulse Oximetry 92
[2020-05-27 05:07] VITALS: BP 97/54; PULSE 60; RESP 16; TEMP 36.7; O2SAT 97
[2020-05-27 05:17] LABS: Add Manual Diff / Slide Review NO; Basophils Absolute Auto 0 /uL (0-100); Basophils Percent Auto 0.9 % (0-2); Eosinophils Absolute Auto 100 /uL (0-450); Hematocrit 34.1 % (41-53); Hemoglobin 11.5 g/dL (13.5-17.5); Lymphocytes Absolute Auto 1100 /uL (1100-4500); Lymphocytes Percent Auto 19.4 % (25-40); Mean Corpuscular HGB Conc 33.7 % (30-36); Mean Corpuscular Hemoglobin 33.8 PG (26-34); Mean Corpuscular Volume 100.1 fL (80-100); Monocytes Absolute Auto 600 /uL (0-900); Monocytes Percent Auto 10.5 % (3-14); Neutrophils Absolute Auto 3800 /uL (1500-7000); Neutrophils Percent Auto 67.2 % (50-75); Platelet Count 179 X10^3/uL (150-400); Red Blood Cell Count 3.41 X10^6/uL (4.5-5.9); Red Cell Distribution Width 14.6 % (11.6-14.8); White Blood Cell Count 5.7 X10^3/uL (4.5-11.0)
[2020-05-27 05:27] LABS: BUN Creatinine Ratio 21.5 (6-22); Blood Urea Nitrogen 23 mg/dL (9-20); Calcium 8.8 mg/dL (8.4-10.2); Carbon Dioxide 33 mmol/L (22-32); Chloride 104 mmol/L (98-107); Cholesterol 110 mg/dL (140-199); Estimated Glomerular Filt Rate > 60.0 mL/min (>60); Glucose 92 mg/dL (80-110); HDL Cholesterol 39 mg/dL (40-60); HEMOLYSIS < 15 (0-50); LDL Cholesterol Calculated 63 mg/dL (<100); Magnesium 1.8 mg/dL (1.6-2.3); Sodium 137 mmol/L (137-145); Triglycerides 42 mg/dL (35-150)
[2020-05-27 05:39] LABS: Troponin I < 0.012 ng/mL (0.01-0.034)
[2020-05-27 05:43] LABS: Free T4, Direct Thyroxine 1.18 ng/dL (0.78-2.19)
[2020-05-27 07:48] VITALS: BP 126/70; PULSE 60; RESP 18; TEMP 36.8; O2SAT 97
[2020-05-27] MEDS: FUROSEMIDE 20 MG/2 ML VIAL IV (08:16)
[2020-05-27] MEDS: ASPIRIN EC 81 MG TABLET PO (08:16)
[2020-05-27] MEDS: LEVOTHYROXINE 137 MCG TABLET PO (08:16)
[2020-05-27] MEDS: FLECAINIDE 100 MG TABLET 150 MG PO (08:26)
--- NOTE | 2020-05-27 13:26 | CM.DANOTE ---
Patient is a 74 year old male who was admitted OBS on 05/26/20 for AFIB. Pt has REG MCR ADV for insurance and his PCP is not listed. EMR was reviewed. Per MD, pt with hx of AFIB and chest pain and admitted for AFIB with RVR and CHF. Echo ordered and pending. Per MD, pt now medically stable to d/c home with no identified barriers to discharge. Per RN, pt with no concerns regarding d/c home today and d/c instructions explained and pt taken to POV. Pt resides in [place] alone and is active and independent at baseline and has local supportive Dtr Sarahi. Pt established with High [employer] Dr. Garcia and has an appt upcoming in [facility] in a couple weeks for follow up. No needs identified at this time. SW unable to complete bedside assessment due to triage needs and no d/c planning needs identified. Plan: Patient discharged home via POV and outpt follow up and no SW needs at this time. DEVI Freitas Discharge Planning/Care Management CM Discharge Assessment Start: 05/27/20 13:25 Freq: Status: Active Protocol: Document 05/27/20 13:25 BF (Rec: 05/27/20 13:26 BF [id number]) Discharge Planning Assessment Assigned Hose Mender DEVI Lopez Advance Directives? Yes History Provided By Patient,Medical Record Has Patient been admitted in last 30 No days? Prior Living Arrangements House Household Members none Type of transporation used prior to Drives own vehicle admit Independent with ADL's Yes Is patient alert and oriented? Yes Caregiver for Another No Comment Home, no needs Barriers to Discharge No Discharge Plan Home Transportation Arrangement Family available for transport Review Status In Process Please Provide Date Initial DC 05/27/20 Assessment Was Performed Next Review Type Continued Stay Review
--- NOTE | 2020-05-27 13:31 | PC.NURSE ---
Echo completed as ordered, per Dr. Barrett patient need not wait for results as his banner painter will be follow up with him. Patient states understanding and has no further questions or concerns. IVs (x2) and tele dc'd intact. Discharge instructions and home care reviewed with patient, patient states understanding and has no further questions or concerns. Patient states he has follow up appointment with his banner painter already in place. Patient escorted out via wheelchair by FO[employer]ITE M[employer]ER with all his belongings.
--- NOTE | 2020-05-27 17:52 | P.DS_ITS ---
History of Present Illness History of Present Illness Date Patient Seen: 05/27/20 Chief complaint: AFIB Narrative: Mr. Hal Damon is a 74-year-old male with a past medical history significant for paroxysmal atrial fibrillation, av sequential pacemaker, acquired hypothyroidism (s/p thyroid radiation for hyperthyroidism) hyperlipidemia and kidney stones who presents to the ER with chest discomfort and palpitations. The patient reports waking at 5:00 a.m. from sleep with chest discomfort and palpitations. He has had previous such episodes associated with atrial fibrillation with the last episode 2 months ago and prior to that 6 months ago. He states on the 2 previous episodes the rhythm and resolved within 3-4 hours following receiving additional flecainide in the ER on 1 occasion and his polymer specialist Dr. Mathias instructed him to take an extra half tablet of 150 mg flecainide. The patient presents tonight due to the persistence of the rhythm since early this morning. The patient describes chest discomfort is midsternal and nonradiating and nonpleuritic. He denies associated shortness of breath, nausea vomiting or diaphoresis. He states he continued his normal activities throughout the day without exacerbation of chest pain though he describes himself as minimally active. He does endorse waking in the morning with wheezing and productive cough. He denies a smoking history. He has had no recent complaints of cold or flu symptoms and has had no known COVID-19 exposures. He denies headaches or dizziness has had no visual changes. He denies nasal congestion or sore throat. He has had no neck or back pain. He has had chest pain and palpitations as above. He denies shortness of breath, has a morning cough and wheeze which resolved without treatment. He denies epigastric or abdominal pain, has no nausea vomiting, denies diarrhea or constip ation. He has urinary difficulty with slow stream and small voids taking tamsulosin daily. The patient is ambulatory and uses no assistive devices. Upon arrival to the ER the patient has temperature 99.5?, heart rate of 105, blood pressure 126/77, respirations of 20 saturating 99% on room air. A chest x-ray is obtained finding a right basilar atelectasis with stable cardiomyopathy. Initial monitor displaced a wide P tachycardia. Serial 12 lead EKG is obtained with the most recent revealing an AV paced rhythm at 100 the p.r. interval of 116 milliseconds, QRS 190 milliseconds, QTC of 337 m illiseconds. On laboratory analysis the patient has white count of 4.5, hemoglobin of 12.1, hematocrit 35.5 and platelets 190. Has a PT of 12.4, INR 1.1 and a PTT of 30. His left quite all within normal limits with a potassium of 4.6 and magnesium of 2.2. He has a BUN of 23 and a creatinine of 1.08. His nonfasting glucose is 92. His liver functions all within normal limits. Has a total CK of 35 with a troponin of less than 0.012. His proBNP is elevated at 6370. COVID screening is negative. Dr. gomez cardiology is consulted through the ER reviewing his EKGs in the patient's chart. The polymer specialist's interpretation is that the patient has AFib with RVR with overlying pacemaker rhythm. In the ER the patient has received diltiazem 10 mg, metoprolol 5 mg x 2 and Lasix 40 mg. The patient is admitted to the hospital service for atrial fibrillation with RVR chest pain and congestive heart failure. Discharge Providers Provider Date of admission: 05/26/20 22:35 Discharge Date: 05/27/20 Consults: 05/26/20 22:59 Consult to Discharge Planning Routine Comment: Discharge provider: Jesusita Barrett MD Summary Hospital Course Discharge Diagnosis: 1. Chronic atrial fibrillation, admission for rapid ventricular response, now resolved 2. Acute Systolic Heart Failure 3. Hypothyroidism 4.. Hyperlipidemia Hospital Course: Patient was admitted to the hospital for atrial fibrillation with rapid ventricular response rate. He was given his usual flecainide in the emergency department in addition to a dose of Cardizem and metoprolol. By the time the patient arrived to the floor his heart rate improved. Patient was felt to be in congestive heart he was given 40 mg of IV Lasix in the emergency depa rtment. Following day the patient's breathing had improved. His heart rate had converted back to a regular rhythm The patient had no further shortness of breath. He underwent cardiac echo which revealed the following findings: Dilated left atrium, ejection fraction of 40- 45%. Patient was deemed improved and discharged home with plans to follow-up with Dr. Mathias as scheduled in June.. Exam Vital Signs (past 8 hours): Oxygen Delivery Method Room Air Oxygen Flow Rate 0 Narrative Exam Narrative: Pleasant gentleman in no acute distress Lungs: Clear to auscultation Cardiac exam: Regular rate and rhythm normal S1-S2 Abdomen: Soft nontender Extremities: No edema Objective Labs Result Diagrams: 05/27/20 04:40 05/27/20 04:40 Labs: Laboratory Results - last 24 hr 05/26/20 05/26/20 05/26/20 19:25 19:25 19:25 WBC 4.5 RBC 3.55 L Hgb 12.1 L Hct 35.5 L MCV 100.1 H MCH 34.2 H MCHC 34.1 RDW 15.1 H Plt Count 190 Neut % (Auto) 68.3 Lymph % (Auto) 16.2 L [place] % (Auto) 12.6 Eos % (Auto) 1.8 L Baso % (Auto) 1.1 Neut # (Auto) 3100 Lymph # (Auto) 700 L [place] # (Auto) 600 Eos # (Auto) 100 Baso # (Auto) 100 PT 12.6 INR 1.1 APTT 30 Sodium Potassium Chloride Carbon Dioxide BUN Creatinine Estimated GFR BUN/Creatinine Ratio Glucose Calcium Magnesium Total Bilirubin AST ALT Alkaline Phosphatase Total Creatine Kinase CK-MB (CK-2) CK-MB (CK-2) Rel Index Troponin I NT-Pro-B Natriuret Pep 6370 H Total Protein Albumin Globulin Albumin/Globulin Ratio Triglycerides Cholesterol LDL Cholesterol, Calc HDL Cholesterol Lipase Free T4 COVID-19 PCR 05/26/20 05/26/20 05/26/20 19:25 19:25 19:37 WBC RBC Hgb Hct MCV MCH MCHC RDW Plt Count Neut % (Auto) Lymph % (Auto) [place] % (Auto) Eos % (Auto) Baso % (Auto) Neut # (Auto) Lymph # (Auto) [place] # (Auto) Eos # (Auto) Baso # (Auto) PT INR APTT Sodium 139 Potassium 4.6 Chloride 104 Carbon Dioxide 32 BUN 23 H Creatinine 1.08 Estimated GFR > 60.0 BUN/Creatinine Ratio 21.3 Glucose 92 Calcium 9.1 Magnesium 2.2 Total Bilirubin 0.7 AST 19 ALT 16 Alkaline Phosphatase 56 Total Creatine Kinase 35 L CK-MB (CK-2) TNP CK-MB (CK-2) Rel Index TNP Troponin I < 0.012 NT-Pro-B Natriuret Pep Total Protein 6.3 Albumin 3.8 Globulin 2.5 Albumin/Globulin Ratio 1.5 Triglycerides Cholesterol LDL Cholesterol, Calc HDL Cholesterol Lipase 74 Free T4 COVID-19 PCR Negative 05/27/20 05/27/20 05/27/20 04:40 04:40 04:40 WBC 5.7 RBC 3.41 L Hgb 11.5 L Hct 34.1 L MCV 100.1 H MCH 33.8 MCHC 33.7 RDW 14.6 Plt Count 179 Neut % (Auto) 67.2 Lymph % (Auto) 19.4 L [place] % (Auto) 10.5 Eos % (Auto) 2.0 Baso % (Auto) 0.9 Neut # (Auto) 3800 Lymph # (Auto) 1100 [place] # (Auto) 600 Eos # (Auto) 100 Baso # (Auto) 0 PT INR APTT Sodium 137 Potassium 4.0 Chloride 104 Carbon Dioxide 33 H BUN 23 H Creatinine 1.07 Estimated GFR > 60.0 BUN/Creatinine Ratio 21.5 Glucose 92 Calcium 8.8 Magnesium 1.8 Total Bilirubin AST ALT Alkaline Phosphatase Total Creatine Kinase CK-MB (CK-2) CK-MB (CK-2) Rel Index Troponin I < 0.012 NT-Pro-B Natriuret Pep Total Protein Albumin Globulin Albumin/Globulin Ratio Triglycerides 42 Cholesterol 110 L LDL Cholesterol, Calc 63 HDL Cholesterol 39 L Lipase Free T4 COVID-19 PCR 05/27/20 04:40 WBC RBC Hgb Hct MCV MCH MCHC RDW Plt Count Neut % (Auto) Lymph % (Auto) [place] % (Auto) Eos % (Auto) Baso % (Auto) Neut # (Auto) Lymph # (Auto) [place] # (Auto) Eos # (Auto) Baso # (Auto) PT INR APTT Sodium Potassium Chloride Carbon Dioxide BUN Creatinine Estimated GFR BUN/Creatinine Ratio Glucose Calcium Magnesium Total Bilirubin AST ALT Alkaline Phosphatase Total Creatine Kinase CK-MB (CK-2) CK-MB (CK-2) Rel Index Troponin I NT-Pro-B Natriuret Pep Total Protein Albumin Globulin Albumin/Globulin Ratio Triglycerides Cholesterol LDL Cholesterol, Calc HDL Cholesterol Lipase Free T4 1.18 COVID-19 PCR [facility] Medical History (Updated 05/27/20 @ 00:10 by BRENDA Kramer) Brain tumor History of thyroid irradiation Hypothyroidism Kidney stones Paroxysmal atrial fibrillation Surgical History (Updated 05/27/20 @ 00:10 by BRENDA Kramer) History of cataract surgery History of craniotomy History of cystoscopy History of hand surgery History of knee surgery History of lithotripsy History of permanent cardiac pacemaker placement Family History (Updated 05/27/20 @ 00:12 by BRENDA Kramer) Father Pneumonia Mother Cancer Brother Cancer Social History household members: none Smoking Status: Never smoker alcohol intake: current Discharge Assessment & Plan Assessment and Plan Assessment: 1. Chronic atrial fibrillation 2. Acute systolic heart failure 3. Hypothyroid 4. Hyperlipidemia 5. BPH Plan of Treatment: Patient will continue medications as planned and prescribed. He will follow-up with his polymer specialist, Dr. Mathias to schedule Discharge Plan Discharge Plan Patient Disposition: Home Discharge orders & Medications Prescriptions: New aspirin 81 mg Tablet,Delayed Release (Dr/Ec) 81 mg PO DAILY Qty: 30 RF: 0 Continued levothyroxine 137 mcg Tablet 137 mcg PO DAILY RF: 0 flecainide 150 mg Tablet 150 mg PO Q12H RF: 0 clonazepam 0.5 mg Tablet 0.5 mg PO TID MDD 3 PRN (Reason: Anxiety) RF: 0 tamsulosin 0.4 mg Capsule 0.4 mg PO DAILY RF: 0 simvastatin 20 mg Tablet 20 mg PO BEDTIME RF: 0 metoprolol tartrate 50 mg Tablet 50 mg PO BID RF: 0 Follow up/Referrals: Isis Mathias MD [Physician] - Discharge Health Status Multidrug resistant organism: No MDRO Diet/Activity/Treatments Diet: Low-sodium and Low-cholesterol Activity: as tolerated Visit Report/Discharge Packet Instructions: DI for Heart Failure, DI for Atrial Fibrillation Discharge Data Attending Provider: Aaron Elizabeth
== END 2020-05-27 13:32 | disposition home or self-care (01) ==
LOC: ED 22:36 → AC 22:36
PROVIDERS: Admitting Provider Nurse Practitioner Adult Health; Emergency Provider Emergency Medicine; Visit Provider Nurse Practitioner Adult Health
DX: R00.2 Palpitations (principal); R07.9 Chest pain, unspecified; I48.91 Unspecified atrial fibrillation; Z95.0 Presence of cardiac pacemaker; I50.22 Chronic systolic (congestive) heart failure; E03.9 Hypothyroidism, unspecified; E78.5 Hyperlipidemia, unspecified; N20.0 Calculus of kidney; Z11.59 Encounter for screening for other viral diseases
CPT/HCPCS: 36415; 71045; 80048; 80053; 80061; 82550; 83690; 83735; 83880; 84439; 84484; 85025; 85610; 85730; 87635; 93005; 93010; 93306; 94762; 96361; 96372; 96374; 96375; 96376; 99282; 99284; 99291; 99292; G0378; J1644; J1940

== ENCOUNTER 2020-09-06 06:17 | Emergency (ER) | payer OTHER, SELFPAY ==
[2020-09-06] VITALS (9 sets, daily range): BP systolic 115–140; BP diastolic 59–68; PULSE 59–74; RESP 12–23; O2SAT 94–98
--- NOTE | 2020-09-06 06:26 | ED.GENADULT ---
HPI - General Adult <Rasheeda Villafana MD - Last Filed: 09/09/20 02:17> General Chief complaint: Syncope Stated complaint: Gen Weakness/Syncope Time Seen by Provider: 09/06/20 06:26 History of Present Illness HPI narrative: 75-year-old gentle with a history of paroxysmal atrial fibrillation currently entirely paced with an AV sequential pacemaker and on both flecainide and metoprolol, history of a brain tumor status post craniotomy, hyperlipidemia, hypothyroidism who presents after an episode of general weakness this morning he states that he went to rib bed around 2:00 a.m. last night he got of 430 this morning and was increasingly weak. He was leaning against a wall and helped himself slide to the floor. At that point he tried crawling to awake his roommate to indicate he needed some assistance but was not able to do that because of global weakness. He notes that he has actually been feeling well over the past few days. His most recent visit with his physician he was told that he had ?some fluid in his lungs? and started on a ?peeing pill? he has found that he has been feeling better and has noted slightly left lower extremity edema after starting this. He denies any trauma related to sliding down the wall to the floor today. He has no focal weakness, chest pain, dyspnea, diaphoresis, abdominal pain speech difficulties or headache. Related Data Home Medications Medication Instructions Recorded Confirmed clonazepam 0.5 mg PO TID PRN MDD 3 05/26/20 05/26/20 flecainide 150 mg PO Q12H 05/26/20 05/26/20 levothyroxine 137 mcg PO DAILY 05/26/20 05/26/20 metoprolol tartrate 50 mg PO BID 05/26/20 05/26/20 simvastatin 20 mg PO BEDTIME 05/26/20 05/26/20 tamsulosin 0.4 mg PO DAILY 05/26/20 05/26/20 Previous Rx's Medication Instructions Recorded aspirin 81 mg PO DAILY #30 tab 05/27/20 Allergies Allergy/AdvReac Type Severity Reaction Status Date / Time No Known Drug Allergies Allergy Verified 09/06/20 07:35 Review of Systems <Rasheeda Villafana MD - Last Filed: 09/09/20 02:17> Review of Systems ROS Unobtainable: All systems reviewed & are unremarkable except as noted in HPI and below Patient History <Rasheeda Villafana MD - Last Filed: 09/09/20 02:17> Medical History Brain tumor History of thyroid irradiation Hypothyroidism Kidney stones Paroxysmal atrial fibrillation Surgical History History of cataract surgery History of craniotomy History of cystoscopy History of hand surgery History of knee surgery History of lithotripsy History of permanent cardiac pacemaker placement Family History Father Pneumonia Mother Cancer Brother Cancer Social History household members: none Smoking Status: Never smoker alcohol intake: current Smoking Status: Never smoker alcohol intake frequency: a few times a month Substance Use Type: does not use Exam <Rasheeda Villafana MD - Last Filed: 09/09/20 02:17> Narrative Exam Narrative: General: Healthy appearing, in no acute distress. Gregarious and able to give a rambling history while speaking in full sentences. Able to give a complete and coherent history. Well-nourished well-developed HEENT: Moist mucous membranes, normal sclera with reactive pupils, Neck: No JVD, supple Respiratory: Lungs are clear to auscultation, no wheezing no rales no rhonchi. Full and symmetrical air movement Cardiac: Regular rate and rhythm no murmurs no bruits Abdomen: Soft, nontender, good bowel tones, no flank pain Skin: Warm and dry, no rashes Neurologic: Globally weak but Grossly neurologically intact with no obvious asymmetries or abnormalities and moving all extremities Extremities: No trauma, well perfused Psych: Cooperative, affect is extraordinarily talkative and somewhat tangential but he is oriented to person time and place Initial Vital Signs Initial Vital Signs: Vital Signs Pulse Rate 60 09/06/20 06:05 Respiratory Rate 20 09/06/20 06:05 Blood Pressure 140/66 09/06/20 06:05 Pulse Oximetry 98 09/06/20 06:05 <Dario Kwok DO - Last Filed: 09/06/20 09:08> Initial Vital Signs Initial Vital Signs: Vital Signs Pulse Rate 60 09/06/20 06:05 Respiratory Rate 20 09/06/20 06:05 Blood Pressure 140/66 09/06/20 06:05 Pulse Oximetry 98 09/06/20 06:05 Course <Rasheeda Villafana MD - Last Filed: 09/09/20 02:17> Orders Ordered: ED Orders 09/06/20 06:33 XR chest 1V Stat 09/06/20 06:50 Complete Blood Count AUTO DIFF Stat Comprehensive Metabolic Panel Stat D Dimer Stat Ethanol (ETOH) Stat Lactate (Lactic Acid) Stat Lipase Stat Magnesium Stat NT-proBNP (BNP-Adult 18+) Stat Troponin I Stat 09/06/20 07:00 COVID19 Stat Urinalysis and Microscopic Stat Vital Signs Vital signs: Vital Signs - 8 hr 09/06/20 06:05 09/06/20 06:55 09/06/20 07:00 Pulse Rate 60 60 60 Respiratory Rate 20 21 20 Blood Pressure 140/66 Pulse Oximetry 98 98 09/06/20 07:02 09/06/20 07:30 09/06/20 08:00 Pulse Rate 60 59 L 59 L Respiratory Rate 23 15 15 Blood Pressure 115/62 129/66 Pulse Oximetry 98 97 97 09/06/20 08:01 09/06/20 08:35 09/06/20 08:37 Pulse Rate 59 L 74 60 Respiratory Rate 15 12 Blood Pressure 126/59 L 123/68 Pulse Oximetry 96 94 98 <Dario Kwok DO - Last Filed: 09/06/20 09:08> Orders Ordered: ED Orders 09/06/20 06:33 XR chest 1V Stat 09/06/20 06:50 Complete Blood Count AUTO DIFF Stat Comprehensive Metabolic Panel Stat D Dimer Stat Ethanol (ETOH) Stat Lactate (Lactic Acid) Stat Lipase Stat Magnesium Stat NT-proBNP (BNP-Adult 18+) Stat Troponin I Stat 09/06/20 07:00 COVID19 Stat Urinalysis and Microscopic Stat Vital Signs Vital signs: Vital Signs - 8 hr 09/06/20 06:05 09/06/20 06:55 09/06/20 07:00 Pulse Rate 60 60 60 Respiratory Rate 20 21 20 Blood Pressure 140/66 Pulse Oximetry 98 98 09/06/20 07:02 09/06/20 07:30 09/06/20 08:00 Pulse Rate 60 59 L 59 L Respiratory Rate 23 15 15 Blood Pressure 115/62 129/66 Pulse Oximetry 98 97 97 09/06/20 08:01 09/06/20 08:35 09/06/20 08:37 Pulse Rate 59 L 74 60 Respiratory Rate 15 12 Blood Pressure 126/59 L 123/68 Pulse Oximetry 96 94 98 Medical Decision Making <Rasheeda Villafana MD - Last Filed: 09/09/20 02:17> Lab Data Result diagrams: 09/06/20 06:50 09/06/20 06:50 Labs: Lab Results 09/06/20 09/06/20 09/06/20 Range/Units 06:50 06:50 06:50 WBC 5.4 (4.5-11.0) X10^3/uL RBC 3.55 L (4.5-5.9) X10^6/uL Hgb 12.3 L (13.5-17.5) g/dL Hct 36.5 L (41-53) % MCV 102.8 H (80-100) fL MCH 34.6 H (26-34) PG MCHC 33.7 (30-36) % RDW 16.0 H (11.6-14.8) % Plt Count 194 (150-400) X10^3/uL Neut % (Auto) Not Reportable Lymph % (Auto) Not Reportable [place] % (Auto) Not Reportable Eos % (Auto) Not Reportable Baso % (Auto) Not Reportable Lymph # (Auto) Not Reportable [place] # (Auto) Not Reportable Baso # (Auto) Not Reportable Total Counted 100 Seg Neutrophils % 55.0 (38-70) % Band Neutrophils % 17.0 H (3-7) % Lymphocytes % (Manual) 13.0 L (25-45) % Atypical Lymphs % 2.0 H ( - 0) % Monocytes % (Manual) 7.0 (2-11) % Eosinophils % (Manual) 6.0 H (2-4) % Neutrophils # (Manual) 3888 (2592-6709) /uL RBC Morphology See below Anisocytosis 1+ H D-Dimer 235 H (<230) ng/mL Sodium 138 (137-145) mmol/L Potassium 4.5 (3.4-5.1) mmol/L Chloride 102 (98-107) mmol/L Carbon Dioxide 33 H (22-32) mmol/L BUN 38 H (9-20) mg/dL Creatinine 1.50 H (0.66-1.25) mg/dL Estimated GFR 45.4 L (>60) mL/min BUN/Creatinine Ratio 25.3 H (6-22) Glucose 101 (80-110) mg/dL Lactate (0.7-2.1) mmol/L Calcium 9.5 (8.4-10.2) mg/dL Magnesium 2.3 (1.6-2.3) mg/dL Total Bilirubin 0.9 (0.2-1.3) mg/dL AST 29 (17-59) IU/L ALT 28 (<50) IU/L Alkaline Phosphatase 69 (38-126) U/L Troponin I < 0.012 (0.01-0.034) ng/mL NT-Pro-B Natriuret Pep 4080 H (<450) pg/mL Total Protein 6.2 L (6.3-8.2) g/dL Albumin 3.9 (3.5-5.0) g/dL Globulin 2.3 (1.7-4.1) g/dL Albumin/Globulin Ratio 1.7 (1.0-2.8) Lipase 153 (23-300) U/L Urine Color Urine Appearance Urine pH (4.5-8.0) Ur Specific [place] (1.000-1.035) Urine Protein (Negative) Urine Glucose (UA) (Negative) g/dL Urine Ketones (NEGATIVE) Urine Occult Blood (Negative) Urine Nitrate (Negative) Urine Bilirubin (NEGATIVE) Urine Urobilinogen (0.2) E.U./dL Ur Leukocyte Esterase (NEGATIVE) Urine RBC (0-5/HPF) Urine WBC (0-5/HPF) Ur Squamous Epith Cells (0-5/HPF) Urine Bacteria (None) Ur Culture Indicated? Ethyl Alcohol ( - 10) mg/dL SARS-CoV-2 (PCR) (Negative) 09/06/20 09/06/20 09/06/20 Range/Units 06:50 06:50 07:00 WBC (4.5-11.0) X10^3/uL RBC (4.5-5.9) X10^6/uL Hgb (13.5-17.5) g/dL Hct (41-53) % MCV (80-100) fL MCH (26-34) PG MCHC (30-36) % RDW (11.6-14.8) % Plt Count (150-400) X10^3/uL Neut % (Auto) Lymph % (Auto) [place] % (Auto) Eos % (Auto) Baso % (Auto) Lymph # (Auto) [place] # (Auto) Baso # (Auto) Total Counted Seg Neutrophils % (38-70) % Band Neutrophils % (3-7) % Lymphocytes % (Manual) (25-45) % Atypical Lymphs % ( - 0) % Monocytes % (Manual) (2-11) % Eosinophils % (Manual) (2-4) % Neutrophils # (Manual) (1439-7445) /uL RBC Morphology Anisocytosis D-Dimer (<230) ng/mL Sodium (137-145) mmol/L Potassium (3.4-5.1) mmol/L Chloride (98-107) mmol/L Carbon Dioxide (22-32) mmol/L BUN (9-20) mg/dL Creatinine (0.66-1.25) mg/dL Estimated GFR (>60) mL/min BUN/Creatinine Ratio (6-22) Glucose (80-110) mg/dL Lactate 0.8 (0.7-2.1) mmol/L Calcium (8.4-10.2) mg/dL Magnesium (1.6-2.3) mg/dL Total Bilirubin (0.2-1.3) mg/dL AST (17-59) IU/L ALT (<50) IU/L Alkaline Phosphatase (38-126) U/L Troponin I (0.01-0.034) ng/mL NT-Pro-B Natriuret Pep (<450) pg/mL Total Protein (6.3-8.2) g/dL Albumin (3.5-5.0) g/dL Globulin (1.7-4.1) g/dL Albumin/Globulin Ratio (1.0-2.8) Lipase (23-300) U/L Urine Color Yellow Urine Appearance Clear Urine pH 5.5 (4.5-8.0) Ur Specific [place] 1.020 (1.000-1.035) Urine Protein Negative (Negative) Urine Glucose (UA) Negative (Negative) g/dL Urine Ketones Negative (NEGATIVE) Urine Occult Blood Negative (Negative) Urine Nitrate Negative (Negative) Urine Bilirubin Negative (NEGATIVE) Urine Urobilinogen 0.2 (0.2) E.U./dL Ur Leukocyte Esterase Negative (NEGATIVE) Urine RBC None seen (0-5/HPF) Urine WBC 0-1/hpf (0-5/HPF) Ur Squamous Epith Cells 0-1 /hpf (0-5/HPF) Urine Bacteria Occasional (0-1) (None) Ur Culture Indicated? Cult not indicated Ethyl Alcohol < 10 ( - 10) mg/dL SARS-CoV-2 (PCR) (Negative) 09/06/20 Range/Units 07:00 WBC (4.5-11.0) X10^3/uL RBC (4.5-5.9) X10^6/uL Hgb (13.5-17.5) g/dL Hct (41-53) % MCV (80-100) fL MCH (26-34) PG MCHC (30-36) % RDW (11.6-14.8) % Plt Count (150-400) X10^3/uL Neut % (Auto) Lymph % (Auto) [place] % (Auto) Eos % (Auto) Baso % (Auto) Lymph # (Auto) [place] # (Auto) Baso # (Auto) Total Counted Seg Neutrophils % (38-70) % Band Neutrophils % (3-7) % Lymphocytes % (Manual) (25-45) % Atypical Lymphs % ( - 0) % Monocytes % (Manual) (2-11) % Eosinophils % (Manual) (2-4) % Neutrophils # (Manual) (9304-2830) /uL RBC Morphology Anisocytosis D-Dimer (<230) ng/mL Sodium (137-145) mmol/L Potassium (3.4-5.1) mmol/L Chloride (98-107) mmol/L Carbon Dioxide (22-32) mmol/L BUN (9-20) mg/dL Creatinine (0.66-1.25) mg/dL Estimated GFR (>60) mL/min BUN/Creatinine Ratio (6-22) Glucose (80-110) mg/dL Lactate (0.7-2.1) mmol/L Calcium (8.4-10.2) mg/dL Magnesium (1.6-2.3) mg/dL Total Bilirubin (0.2-1.3) mg/dL AST (17-59) IU/L ALT (<50) IU/L Alkaline Phosphatase (38-126) U/L Troponin I (0.01-0.034) ng/mL NT-Pro-B Natriuret Pep (<450) pg/mL Total Protein (6.3-8.2) g/dL Albumin (3.5-5.0) g/dL Globulin (1.7-4.1) g/dL Albumin/Globulin Ratio (1.0-2.8) Lipase (23-300) U/L Urine Color Urine Appearance Urine pH (4.5-8.0) Ur Specific [place] (1.000-1.035) Urine Protein (Negative) Urine Glucose (UA) (Negative) g/dL Urine Ketones (NEGATIVE) Urine Occult Blood (Negative) Urine Nitrate (Negative) Urine Bilirubin (NEGATIVE) Urine Urobilinogen (0.2) E.U./dL Ur Leukocyte Esterase (NEGATIVE) Urine RBC (0-5/HPF) Urine WBC (0-5/HPF) Ur Squamous Epith Cells (0-5/HPF) Urine Bacteria (None) Ur Culture Indicated? Ethyl Alcohol ( - 10) mg/dL SARS-CoV-2 (PCR) Negative (Negative) ECG Data Attestation: I personally reviewed and interpreted this ECG as follows: Interpretation: Rate is 60, entirely AV dual paced rhythm <Dario Kwok DO - Last Filed: 09/06/20 09:08> Lab Data Lab results reviewed: Yes I reviewed the patient's lab results. Labs: Lab Results 09/06/20 09/06/20 09/06/20 Range/Units 06:50 06:50 06:50 WBC 5.4 (4.5-11.0) X10^3/uL RBC 3.55 L (4.5-5.9) X10^6/uL Hgb 12.3 L (13.5-17.5) g/dL Hct 36.5 L (41-53) % MCV 102.8 H (80-100) fL MCH 34.6 H (26-34) PG MCHC 33.7 (30-36) % RDW 16.0 H (11.6-14.8) % Plt Count 194 (150-400) X10^3/uL Neut % (Auto) Not Reportable Lymph % (Auto) Not Reportable [place] % (Auto) Not Reportable Eos % (Auto) Not Reportable Baso % (Auto) Not Reportable Lymph # (Auto) Not Reportable [place] # (Auto) Not Reportable Baso # (Auto) Not Reportable Total Counted 100 Seg Neutrophils % 55.0 (38-70) % Band Neutrophils % 17.0 H (3-7) % Lymphocytes % (Manual) 13.0 L (25-45) % Atypical Lymphs % 2.0 H ( - 0) % Monocytes % (Manual) 7.0 (2-11) % Eosinophils % (Manual) 6.0 H (2-4) % Neutrophils # (Manual) 3888 (3414-6853) /uL RBC Morphology See below Anisocytosis 1+ H D-Dimer 235 H (<230) ng/mL Sodium 138 (137-145) mmol/L Potassium 4.5 (3.4-5.1) mmol/L Chloride 102 (98-107) mmol/L Carbon Dioxide 33 H (22-32) mmol/L BUN 38 H (9-20) mg/dL Creatinine 1.50 H (0.66-1.25) mg/dL Estimated GFR 45.4 L (>60) mL/min BUN/Creatinine Ratio 25.3 H (6-22) Glucose 101 (80-110) mg/dL Lactate (0.7-2.1) mmol/L Calcium 9.5 (8.4-10.2) mg/dL Magnesium 2.3 (1.6-2.3) mg/dL Total Bilirubin 0.9 (0.2-1.3) mg/dL AST 29 (17-59) IU/L ALT 28 (<50) IU/L Alkaline Phosphatase 69 (38-126) U/L Troponin I < 0.012 (0.01-0.034) ng/mL NT-Pro-B Natriuret Pep 4080 H (<450) pg/mL Total Protein 6.2 L (6.3-8.2) g/dL Albumin 3.9 (3.5-5.0) g/dL Globulin 2.3 (1.7-4.1) g/dL Albumin/Globulin Ratio 1.7 (1.0-2.8) Lipase 153 (23-300) U/L Urine Color Urine Appearance Urine pH (4.5-8.0) Ur Specific [place] (1.000-1.035) Urine Protein (Negative) Urine Glucose (UA) (Negative) g/dL Urine Ketones (NEGATIVE) Urine Occult Blood (Negative) Urine Nitrate (Negative) Urine Bilirubin (NEGATIVE) Urine Urobilinogen (0.2) E.U./dL Ur Leukocyte Esterase (NEGATIVE) Urine RBC (0-5/HPF) Urine WBC (0-5/HPF) Ur Squamous Epith Cells (0-5/HPF) Urine Bacteria (None) Ur Culture Indicated? Ethyl Alcohol ( - 10) mg/dL SARS-CoV-2 (PCR) (Negative) 09/06/20 09/06/20 09/06/20 Range/Units 06:50 06:50 07:00 WBC (4.5-11.0) X10^3/uL RBC (4.5-5.9) X10^6/uL Hgb (13.5-17.5) g/dL Hct (41-53) % MCV (80-100) fL MCH (26-34) PG MCHC (30-36) % RDW (11.6-14.8) % Plt Count (150-400) X10^3/uL Neut % (Auto) Lymph % (Auto) [place] % (Auto) Eos % (Auto) Baso % (Auto) Lymph # (Auto) [place] # (Auto) Baso # (Auto) Total Counted Seg Neutrophils % (38-70) % Band Neutrophils % (3-7) % Lymphocytes % (Manual) (25-45) % Atypical Lymphs % ( - 0) % Monocytes % (Manual) (2-11) % Eosinophils % (Manual) (2-4) % Neutrophils # (Manual) (7756-0620) /uL RBC Morphology Anisocytosis D-Dimer (<230) ng/mL Sodium (137-145) mmol/L Potassium (3.4-5.1) mmol/L Chloride (98-107) mmol/L Carbon Dioxide (22-32) mmol/L BUN (9-20) mg/dL Creatinine (0.66-1.25) mg/dL Estimated GFR (>60) mL/min BUN/Creatinine Ratio (6-22) Glucose (80-110) mg/dL Lactate 0.8 (0.7-2.1) mmol/L Calcium (8.4-10.2) mg/dL Magnesium (1.6-2.3) mg/dL Total Bilirubin (0.2-1.3) mg/dL AST (17-59) IU/L ALT (<50) IU/L Alkaline Phosphatase (38-126) U/L Troponin I (0.01-0.034) ng/mL NT-Pro-B Natriuret Pep (<450) pg/mL Total Protein (6.3-8.2) g/dL Albumin (3.5-5.0) g/dL Globulin (1.7-4.1) g/dL Albumin/Globulin Ratio (1.0-2.8) Lipase (23-300) U/L Urine Color Yellow Urine Appearance Clear Urine pH 5.5 (4.5-8.0) Ur Specific [place] 1.020 (1.000-1.035) Urine Protein Negative (Negative) Urine Glucose (UA) Negative (Negative) g/dL Urine Ketones Negative (NEGATIVE) Urine Occult Blood Negative (Negative) Urine Nitrate Negative (Negative) Urine Bilirubin Negative (NEGATIVE) Urine Urobilinogen 0.2 (0.2) E.U./dL Ur Leukocyte Esterase Negative (NEGATIVE) Urine RBC None seen (0-5/HPF) Urine WBC 0-1/hpf (0-5/HPF) Ur Squamous Epith Cells 0-1 /hpf (0-5/HPF) Urine Bacteria Occasional (0-1) (None) Ur Culture Indicated? Cult not indicated Ethyl Alcohol < 10 ( - 10) mg/dL SARS-CoV-2 (PCR) (Negative) 09/06/20 Range/Units 07:00 WBC (4.5-11.0) X10^3/uL RBC (4.5-5.9) X10^6/uL Hgb (13.5-17.5) g/dL Hct (41-53) % MCV (80-100) fL MCH (26-34) PG MCHC (30-36) % RDW (11.6-14.8) % Plt Count (150-400) X10^3/uL Neut % (Auto) Lymph % (Auto) [place] % (Auto) Eos % (Auto) Baso % (Auto) Lymph # (Auto) [place] # (Auto) Baso # (Auto) Total Counted Seg Neutrophils % (38-70) % Band Neutrophils % (3-7) % Lymphocytes % (Manual) (25-45) % Atypical Lymphs % ( - 0) % Monocytes % (Manual) (2-11) % Eosinophils % (Manual) (2-4) % Neutrophils # (Manual) (0403-4648) /uL RBC Morphology Anisocytosis D-Dimer (<230) ng/mL Sodium (137-145) mmol/L Potassium (3.4-5.1) mmol/L Chloride (98-107) mmol/L Carbon Dioxide (22-32) mmol/L BUN (9-20) mg/dL Creatinine (0.66-1.25) mg/dL Estimated GFR (>60) mL/min BUN/Creatinine Ratio (6-22) Glucose (80-110) mg/dL Lactate (0.7-2.1) mmol/L Calcium (8.4-10.2) mg/dL Magnesium (1.6-2.3) mg/dL Total Bilirubin (0.2-1.3) mg/dL AST (17-59) IU/L ALT (<50) IU/L Alkaline Phosphatase (38-126) U/L Troponin I (0.01-0.034) ng/mL NT-Pro-B Natriuret Pep (<450) pg/mL Total Protein (6.3-8.2) g/dL Albumin (3.5-5.0) g/dL Globulin (1.7-4.1) g/dL Albumin/Globulin Ratio (1.0-2.8) Lipase (23-300) U/L Urine Color Urine Appearance Urine pH (4.5-8.0) Ur Specific [place] (1.000-1.035) Urine Protein (Negative) Urine Glucose (UA) (Negative) g/dL Urine Ketones (NEGATIVE) Urine Occult Blood (Negative) Urine Nitrate (Negative) Urine Bilirubin (NEGATIVE) Urine Urobilinogen (0.2) E.U./dL Ur Leukocyte Esterase (NEGATIVE) Urine RBC (0-5/HPF) Urine WBC (0-5/HPF) Ur Squamous Epith Cells (0-5/HPF) Urine Bacteria (None) Ur Culture Indicated? Ethyl Alcohol ( - 10) mg/dL SARS-CoV-2 (PCR) Negative (Negative) Imaging Data Chest x-ray: Radiologist's Impression: Located Within [facility] [place] [id number] ReportSigned Patient: Hal Damon LMR#: [id number]: 3Acct:[id number]/Sex: 75 / MDate of Service: 09/06/20Loc: EDAccession Number: [id number] Procedure: XR chest 1V Ordering Provider: Rasheeda Villafana MD PROCEDURE: XR CHEST 1V INDICATIONS: Near-syncope TECHNIQUE: One view of the chest was acquired. COMPARISON: Located Within [facility], , XR CHEST 1V, 05/26/2020, 19:29. Located Within [facility], , CHEST 1 VIEW, 06/07/2015, 12:04. FINDINGS: Surgical changes and devices: Left pacemaker with right atrial and right ventricular leads. External defibrillator pads. Lungs and pleura: Low lung volumes. Mild bibasilar streaky opacity. No pleural effusions or pneumothorax. Mediastinum: Mediastinal contours appear normal. Heart size is enlarged. Bones and chest wall: No suspicious bony lesions. Overlying soft tissues appear unremarkable. IMPRESSION: Mild bibasilar streaky opacity. This is most compatible with atelectasis or scarring. Low lung volumes. Cardiomegaly. This report is concordant with the overnight preliminary interpretation. Dictated by: Mike Joe M.D. on 09/06/2020 at 7:59 Approved by: Mike Joe M.D. on 09/06/2020 at 8:04 [facility] Narrative Medical decision making narrative: Dr kwok: Received turned over from night provider. Reviewed patient's history and physical exam and labs and EKG. His labs are unremarkable except for a slight elevation in his creatinine. He has been on a water pill for the past couple days provided by his primary provider for lower extremity swelling which he states is better. The D-dimer was ordered prior to my evaluation. I have low suspicion for pulmonary embolism. Low suspicion for CVA. Low suspicion for TIA. Low suspicion for ACS given his clinical presentation. Patient ambulated to the bathroom with a walker here in the emergency department. He does have a cane at home and a walker at home. Feel patient does not require admission to the hospital. Juan can be safely discharged home however he was given strict return precautions. He expressed understanding and agreement. Discharge Plan Departure Patient Disposition: Home Clinical Impression: Weakness Instructions: DI for Muscle Weakness Activity Restrictions/Additional Instructions: Your workup here in the emergency department is very reassuring. I recommend that you continue all of your medications as directed. Use the cane or walker you have at home as needed for your comfort. I do recommend you contact your primary provider for a follow-up. Return to the emergency department for any new or worsening symptoms Prescriptions: No Action levothyroxine 137 mcg Tablet 137 mcg PO DAILY RF: 0 flecainide 150 mg Tablet 150 mg PO Q12H RF: 0 clonazepam 0.5 mg Tablet 0.5 mg PO TID MDD 3 PRN (Reason: Anxiety) RF: 0 tamsulosin 0.4 mg Capsule 0.4 mg PO DAILY RF: 0 simvastatin 20 mg Tablet 20 mg PO BEDTIME RF: 0 metoprolol tartrate 50 mg Tablet 50 mg PO BID RF: 0 aspirin 81 mg Tablet,Delayed Release (Dr/Ec) 81 mg PO DAILY Qty: 30 RF: 0
--- NOTE | 2020-09-06 06:33 | DI.RAD.S_ITS ---
PROCEDURE: XR CHEST 1V INDICATIONS: Near-syncope TECHNIQUE: One view of the chest was acquired. COMPARISON: [facility], , XR CHEST 1V, 05/26/2020, 19:29. [facility], , CHEST 1 VIEW, 06/07/2015, 12:04. FINDINGS: Surgical changes and devices: Left pacemaker with right atrial and right ventricular leads. External defibrillator pads. Lungs and pleura: Low lung volumes. Mild bibasilar streaky opacity. No pleural effusions or pneumothorax. Mediastinum: Mediastinal contours appear normal. Heart size is enlarged. Bones and chest wall: No suspicious bony lesions. Overlying soft tissues appear unremarkable. IMPRESSION: Mild bibasilar streaky opacity. This is most compatible with atelectasis or scarring. Low lung volumes. Cardiomegaly. This report is concordant with the overnight preliminary interpretation. Dictated by: Mike Joe M.D. on 09/06/2020 at 7:59 Approved by: Mike Joe M.D. on 09/06/2020 at 8:04
[2020-09-06 07:08] LABS: Red Blood Cell Count 3.55 X10^6/uL (4.5-5.9); White Blood Cell Count 5.4 X10^3/uL (4.5-11.0)
[2020-09-06 07:10] LABS: D Dimer 235 ng/mL (<230)
[2020-09-06 07:17] LABS: Hematocrit 36.5 % (41-53); Hemoglobin 12.3 g/dL (13.5-17.5); Lactate (Lactic Acid) 0.8 mmol/L (0.7-2.1); Mean Corpuscular HGB Conc 33.7 % (30-36); Mean Corpuscular Hemoglobin 34.6 PG (26-34); Mean Corpuscular Volume 102.8 fL (80-100); Platelet Count 194 X10^3/uL (150-400)
[2020-09-06 07:18] LABS: Add Manual Diff / Slide Review YES; Alanine Aminotransferase 28 IU/L (<50); Albumin 3.9 g/dL (3.5-5.0); Albumin Globulin Ratio 1.7 (1.0-2.8); Alkaline Phosphatase 69 U/L (38-126); Aspartate Aminotransferase 29 IU/L (17-59); BUN Creatinine Ratio 25.3 (6-22); Bilirubin Total 0.9 mg/dL (0.2-1.3); Blood Urea Nitrogen 38 mg/dL (9-20); Calcium 9.5 mg/dL (8.4-10.2); Carbon Dioxide 33 mmol/L (22-32); Chloride 102 mmol/L (98-107); Estimated Glomerular Filt Rate 45.4 mL/min (>60); Globulin 2.3 g/dL (1.7-4.1); Glucose 101 mg/dL (80-110); HEMOLYSIS < 15 (0-50); Lipase 153 U/L (23-300); Magnesium 2.3 mg/dL (1.6-2.3); Potassium 4.5 mmol/L (3.4-5.1); Sodium 138 mmol/L (137-145); Total Protein 6.2 g/dL (6.3-8.2)
[2020-09-06 07:25] LABS: RBC Urine None Seen (0-5/HPF)
[2020-09-06 07:27] LABS: Ethanol (ETOH) < 10 mg/dL
[2020-09-06 07:29] LABS: Appearance Urine UA CLEAR; Bilirubin Urine UA NEGATIVE (NEGATIVE); Color Urine UA YELLOW; Glucose Urine UA NEGATIVE (Negative); Ketones Urine UA NEGATIVE (NEGATIVE); Leukocyte Esterase Urine UA NEGATIVE (NEGATIVE); Nitrite Urine UA NEGATIVE (Negative); Occult Blood Urine UA NEGATIVE (Negative); Protein Urine UA NEGATIVE (Negative); Urobilinogen Urine UA 0.2 E.U./dL (0.2); pH Urine UA 5.5 (4.5-8.0)
[2020-09-06 07:30] LABS: NT-proBNP (BNP-Adult 18+) 4080 pg/mL (<450); Troponin I < 0.012 ng/mL (0.01-0.034)
[2020-09-06 07:37] LABS: Bacteria Urine Occasional (0-1); Culture Indicated Urine Cult Not Indicated; Squamous Epithelial Cell Urine 0-1 /HPF (0-5/HPF); WBC Urine 0-1/HPF (0-5/HPF)
[2020-09-06 07:43] LABS: COVID19 -Nasal RAPID Negative (Negative)
[2020-09-06 08:08] LABS: Neutrophils Absolute Manual 3888 /uL (3000-5900); Total Cells Counted 100
[2020-09-06 08:09] LABS: Anisocytosis 1+
--- NOTE | 2020-09-06 08:15 | PC.NURSE ---
had episode of weakness w/o unconsciousness. No focal weakness.
--- NOTE | 2020-09-06 08:45 | PC.NURSE ---
Pt ambulated with walker to the bathroom, no complaints at this time. States he is feeling much better than when he arrived.
== END 2020-09-06 09:21 | disposition home or self-care (01) ==
PROVIDERS: Emergency Medicine; Emergency Provider Emergency Medicine
DX: R53.1 Weakness (principal); Z20.822 Contact with and (suspected) exposure to COVID-19; R79.89 Other specified abnormal findings of blood chemistry
CPT/HCPCS: 36415; 71045; 80053; 80320; 81001; 83605; 83690; 83735; 83880; 84484; 85007; 85025; 85379; 87635; 93005; 99283; 99284; C9803

== ENCOUNTER 2021-01-11 16:14 | Emergency (ER) | payer OTHER, SELFPAY ==
[2021-01-11] VITALS (11 sets, daily range): BP systolic 119–152; BP diastolic 63–80; PULSE 71–96; RESP 16–24; TEMP 37.1; O2SAT 97–100; BMI 29.5
--- NOTE | 2021-01-11 16:23 | DI.RAD.S_ITS ---
PROCEDURE: XR CHEST 1V INDICATIONS: chest pain TECHNIQUE: One view of the chest was acquired. COMPARISON: [facility], CR, XR CHEST 2 VIEWS, 09/09/2020, 16:28. [facility], CR, XR CHEST 1 VIEW, 12/02/2019, 15:12. [facility], CR, XR CHEST 1V, 05/26/2020, 19:29. [facility], CR, XR CHEST 1V, 09/06/2020, 6:36. FINDINGS: Surgical changes and devices: A pacer device is seen. Lungs and pleura: An incomplete inspiratory result is noted, causing a crowded appearance to the lung markings. Mild, streaky opacities are seen at the lung bases. On this semiupright portable chest examination, no large pneumothorax or large pleural effusions are seen. Mediastinum: Mediastinal contours appear normal. Heart size is mildly enlarged. Bones and chest wall: No suspicious bony lesions. Age-appropriate bony degenerative changes are seen. Overlying soft tissues appear unremarkable. IMPRESSION: Presumed atelectasis is seen at the lung bases. Differential diagnosis includes minimal/early infiltrate, yet this is considered to be less likely. There is mild cardiomegaly. Postoperative and degenerative changes are seen. Dictated by: David Blanc M.D. on 01/11/2021 at 15:42 Approved by: David Blanc M.D. on 01/11/2021 at 15:43
--- NOTE | 2021-01-11 16:50 | ED.ARRPALP ---
HPI - Arrhythmia/Palpitations General Chief Complaint: Arrhythmia/Palpitations Stated Complaint: Afib Time Seen by Provider: 01/11/21 16:41 Source: patient and EMS Mode of arrival: EMS Limitations: no limitations History of Present Illness HPI narrative: Patient is a 75-year-old male with history of atrial fibrillation with pacemaker AV sequential pacemaker on both flecainide and metoprolol, history of brain tumor status post craniotomy, hyperlipidemia, hypothyroidism who presents with palpitations. He said this morning he felt palpitations. He denies any dizziness or lightheadedness. He felt his pulse and thought it was irregular. He certainly felt some fluttering in his chest. He denies any dizziness or lightheadedness. He says when he normally feels this he takes an extra flecainide and aspirin which he did. He now is feeling significantly better. His heart rate is in the 90s. It is paced. No other symptoms. Related Data Home Medications Medication Instructions Recorded Confirmed clonazepam 0.5 mg tablet 0.5 mg PO TID PRN MDD 3 05/26/20 01/11/21 flecainide 150 mg tablet 150 mg PO Q12H 05/26/20 01/11/21 levothyroxine 137 mcg tablet 137 mcg PO DAILY 05/26/20 01/11/21 metoprolol tartrate 50 mg tablet 200 mg PO BID 05/26/20 01/11/21 simvastatin 20 mg tablet 20 mg PO BEDTIME 05/26/20 01/11/21 tamsulosin 0.4 mg capsule 0.4 mg PO DAILY 05/26/20 01/11/21 potassium chloride 10 mEq 10 meq PO DAILY 01/11/21 01/11/21 tablet,extended release torsemide 20 mg tablet 20 mg PO DAILY 01/11/21 01/11/21 Previous Rx's Medication Instructions Recorded aspirin 81 mg tablet,delayed 81 mg PO DAILY #30 tab 05/27/20 release Allergies Allergy/AdvReac Type Severity Reaction Status Date / Time No Known Drug Allergies Allergy Verified 01/11/21 16:28 Review of Systems Review of Systems Narrative: GENERAL: Denies chills, fatigue, malaise, fever, sweats, travel HEENT: Denies sinus pain, ear pain, sore throat, difficulty swallowing, neck pain RESPIRATORY: Denies dyspnea, cough, wheezing, hemoptysis, sputum. CARDIOVASCULAR: See HPI GASTROINTESTINAL: Denies nausea, vomiting, abdominal pain, diarrhea, constipation, melena. : Denies dysuria, frequency, incontinence, hematuria, urinary retention, flank pain. MUSCULOSKELETAL: Denies weakness, joint pain, or bony pain SKIN: No rash, no erythema, no pruritus NEUROLOGIC: Denies weakness, dizziness, headache, numbness, change in speech, confusion PSYCHIATRIC: No concerning psychosocial issues. 12 point review of systems is negative except for those stated above and HPI Patient History Medical History Brain tumor History of thyroid irradiation Hypothyroidism Kidney stones Paroxysmal atrial fibrillation Surgical History History of cataract surgery History of craniotomy History of cystoscopy History of hand surgery History of knee surgery History of lithotripsy History of permanent cardiac pacemaker placement Family History Father Pneumonia Mother Cancer Brother Cancer Social History household members: none Smoking Status: Never smoker alcohol intake: current Smoking Status: Never smoker alcohol intake frequency: a few times a month Substance Use Type: does not use Exam Initial Vital Signs Initial Vital Signs: Vital Signs Temperature 98.8 F 01/11/21 16:28 Pulse Rate 90 01/11/21 16:28 Respiratory Rate 20 01/11/21 16:28 Blood Pressure 121/71 01/11/21 16:28 Pulse Oximetry 98 01/11/21 16:28 GENERAL: Pleasant 75-year-old male HEENT: Head atraumatic,EOMI, pupils reactive, face symmetric, [moist] mucous membranes CARDIOVASCULAR: Irregular no murmurs RESPIRATORY: Breath sounds equal bilaterally, no wheezes rales or rhonchi. ABDOMEN: Soft, nontender. Normoactive bowel sounds all 4 quadrants. No guarding or rebound. EXTREMITIES: Normal range of motion, no clubbing or edema. Neurovascularly intact NEUROLOGICAL: Alert and oriented x4.Normal gait and speech. SKIN: Warm, dry, no laceration, no petechiae, no rashes or lesions. Course Orders Ordered: Discontinued Medications Metoprolol Tartrate (Metoprolol Ir 25 Mg Tablet) 25 mg PO NOW ONE Stop: 01/11/21 19:29 Last Admin: 01/11/21 19:40 Dose: 25 mg Documented by: JADE Vital Signs Vital signs: Vital Signs - 8 hr 01/11/21 16:28 01/11/21 16:31 01/11/21 17:00 Temperature 98.8 F Pulse Rate 90 89 94 H Respiratory Rate 20 17 17 Blood Pressure 121/71 Pulse Oximetry 98 97 98 01/11/21 17:01 01/11/21 17:30 Temperature Pulse Rate 95 H 81 Respiratory Rate 19 18 Blood Pressure 122/63 123/80 Pulse Oximetry 97 97 MDM - Arrhythmia/Palpitations Lab Data Result diagrams: 01/11/21 16:21 01/11/21 16:21 Labs: Lab Results 01/11/21 01/11/21 Range/Units 16:21 16:21 WBC 4.9 (4.5-11.0) X10^3/uL RBC 3.58 L (4.5-5.9) X10^6/uL Hgb 12.4 L (13.5-17.5) g/dL Hct 36.6 L (41-53) % MCV 102.3 H (80-100) fL MCH 34.6 H (26-34) PG MCHC 33.8 (30-36) % RDW 14.4 (11.6-14.8) % Plt Count 193 (150-400) X10^3/uL Neut % (Auto) 70.3 (50-75) % Lymph % (Auto) 16.4 L (25-40) % Trigg % (Auto) 11.3 (3-14) % Eos % (Auto) 1.2 L (2-4) % Baso % (Auto) 0.8 (0-2) % Neut # (Auto) 3500 (1658-5326) /uL Lymph # (Auto) 800 L (0035-2017) /uL Trigg # (Auto) 600 (0-900) /uL Eos # (Auto) 100 (0-450) /uL Baso # (Auto) 0 (0-100) /uL Sodium 138 (137-145) mmol/L Potassium 4.2 (3.4-5.1) mmol/L Chloride 104 (98-107) mmol/L Carbon Dioxide 30 (22-32) mmol/L BUN 20 (9-20) mg/dL Creatinine 1.25 (0.66-1.25) mg/dL Estimated GFR 56.0 L (>60) mL/min BUN/Creatinine Ratio 16.0 (6-22) Glucose 78 L (80-110) mg/dL Calcium 9.2 (8.4-10.2) mg/dL Total Bilirubin 0.9 (0.2-1.3) mg/dL AST 20 (17-59) IU/L ALT 17 (<50) IU/L Alkaline Phosphatase 60 (38-126) U/L Total Creatine Kinase 36 L (55-170) U/L CK-MB (CK-2) TNP CK-MB (CK-2) Rel Index TNP Troponin I < 0.012 (0.01-0.034) ng/mL Total Protein 6.3 (6.3-8.2) g/dL Albumin 3.8 (3.5-5.0) g/dL Globulin 2.5 (1.7-4.1) g/dL Albumin/Globulin Ratio 1.5 (1.0-2.8) Lipase 135 (23-300) U/L Imaging Data Chest x-ray: Radiologist's Impresson: PROCEDURE: XR CHEST 1V INDICATIONS: chest pain TECHNIQUE: One view of the chest was acquired. COMPARISON: [facility], CR, XR CHEST 2 VIEWS, 09/09/2020, 16:28. [facility], , XR CHEST 1 VIEW, 12/02/2019, 15:12. [facility], , XR CHEST 1V, 05/26/2020, 19:29. [facility], , XR CHEST 1V, 09/06/2020, 6:36. FINDINGS: Surgical changes and devices: A pacer device is seen. Lungs and pleura: An incomplete inspiratory result is noted, causing a crowded appearance to the lung markings. Mild, streaky opacities are seen at the lung bases. On this semiupright portable chest examination, no large pneumothorax or large pleural effusions are seen. Mediastinum: Mediastinal contours appear normal. Heart size is mildly enlarged. Bones and chest wall: No suspicious bony lesions. Age-appropriate bony degenerative changes are seen. Overlying soft tissues appear unremarkable. IMPRESSION: Presumed atelectasis is seen at the lung bases. Differential diagnosis includes minimal/early infiltrate, yet this is considered to be less likely. There is mild cardiomegaly. Postoperative and degenerative changes are seen. Dictated by: David Blanc M.D. on 01/11/2021 at 15:42 ECG Data Interpretation: Paced rhythm rate [address] changes no T-wave inversions similar to previous EKG MDM Narrative Medical decision making narrative: Patient's pacemaker is interrogated. [facility] called and said it is 99% paced. This morning he had a run of atrial tachycardia highest rate of 102 lasted for about 14 seconds. His rhythm is paced but does still appear to be atrial fibrillation. He is taking aspirin daily. Heart rate is 80-90. Patient only is symptomatic when he feels his pulse rate. He no longer has any chest pain he has no palpitations he is not dizzy or lightheaded he is asymptomatic. At this time patient certainly is not a candidate for cardioversion. He is given an extra dose of metoprolol in the ED. He is actually unsure if he took 1 or 2 doses of flecainide. I discussed with him not to take any more doses of flecainide today. He is encouraged to call his customer operations intern on Wednesday to schedule follow-up if needed. And also to return to emergency department if symptoms return. Patient is ambulatory in the ED he is not dizzy lightheaded he has no chest pain. He is quite concerned about when he feels his pulse he it feels irregular to him. It is irregular, he is in atrial fibrillation with paced rhythm however his rate is controlled. He is otherwise asymptomatic. Discharge Plan Departure Patient Disposition: Home Clinical Impression: Atrial fibrillation Instructions: DI for Atrial Fibrillation Activity Restrictions/Additional Instructions: *You have been diagnosed with atrial fibrillation *What to do: At this time you are in a paced rhythm. Your heart rate is controlled. There is not much else to do in the emergency department You did exactly what you were supposed to do and took flecainide. *Continue to take medications as directed Do not take anymore flecainide today *Follow up with your primary care provider in 2-3 days Please follow-up with her customer operations intern next week culture schedule an appointment *Return to ER if you should have increasing palpitations, dizziness, lightheadedness, passing out, chest pain or any new, worsening or concerning symptoms Prescriptions: No Action torsemide 20 mg tablet 20 mg PO DAILY RF: 0 potassium chloride 10 mEq tablet extended release 10 meq PO DAILY RF: 0 levothyroxine 137 mcg Tablet 137 mcg PO DAILY RF: 0 flecainide 150 mg Tablet 150 mg PO Q12H RF: 0 clonazepam 0.5 mg Tablet 0.5 mg PO TID MDD 3 PRN (Reason: Anxiety) RF: 0 tamsulosin 0.4 mg Capsule 0.4 mg PO DAILY RF: 0 simvastatin 20 mg Tablet 20 mg PO BEDTIME RF: 0 metoprolol tartrate 50 mg Tablet 200 mg PO BID RF: 0 aspirin 81 mg Tablet,Delayed Release (Dr/Ec) 81 mg PO DAILY Qty: 30 RF: 0 Referrals: Glo Menjivar DO [Emergency Provider] - To aKye MD [Primary Care Provider] - Isis Mathias MD [Physician] -
[2021-01-11 16:51] LABS: Add Manual Diff / Slide Review NO; Basophils Absolute Auto 0 /uL (0-100); Basophils Percent Auto 0.8 % (0-2); Eosinophils Absolute Auto 100 /uL (0-450); Eosinophils Percent Auto 1.2 % (2-4); Hematocrit 36.6 % (41-53); Hemoglobin 12.4 g/dL (13.5-17.5); Lymphocytes Absolute Auto 800 /uL (1100-4500); Lymphocytes Percent Auto 16.4 % (25-40); Mean Corpuscular HGB Conc 33.8 % (30-36); Mean Corpuscular Hemoglobin 34.6 PG (26-34); Mean Corpuscular Volume 102.3 fL (80-100); Monocytes Absolute Auto 600 /uL (0-900); Monocytes Percent Auto 11.3 % (3-14); Neutrophils Absolute Auto 3500 /uL (1500-7000); Neutrophils Percent Auto 70.3 % (50-75); Platelet Count 193 X10^3/uL (150-400); Red Blood Cell Count 3.58 X10^6/uL (4.5-5.9); Red Cell Distribution Width 14.4 % (11.6-14.8); White Blood Cell Count 4.9 X10^3/uL (4.5-11.0)
[2021-01-11 16:56] LABS: Alanine Aminotransferase 17 IU/L (<50); Albumin 3.8 g/dL (3.5-5.0); Albumin Globulin Ratio 1.5 (1.0-2.8); Alkaline Phosphatase 60 U/L (38-126); Aspartate Aminotransferase 20 IU/L (17-59); Bilirubin Total 0.9 mg/dL (0.2-1.3); Blood Urea Nitrogen 20 mg/dL (9-20); Calcium 9.2 mg/dL (8.4-10.2); Carbon Dioxide 30 mmol/L (22-32); Chloride 104 mmol/L (98-107); Creatine Kinase 36 U/L (55-170); Globulin 2.5 g/dL (1.7-4.1); Glucose 78 mg/dL (80-110); HEMOLYSIS < 15 (0-50); Lipase 135 U/L (23-300); Potassium 4.2 mmol/L (3.4-5.1); Sodium 138 mmol/L (137-145); Total Protein 6.3 g/dL (6.3-8.2)
[2021-01-11 17:08] LABS: Troponin I < 0.012 ng/mL (0.01-0.034)
--- NOTE | 2021-01-11 17:12 | PC.NURSE ---
Pt's [facility] [facility] pacemaker interrogated. Awaiting a report
[2021-01-11] MEDS: METOPROLOL IR 25 MG TABLET PO (19:40)
== END 2021-01-11 20:04 | disposition home or self-care (01) ==
PROVIDERS: Emergency Provider Emergency Medicine; PCP Internal Medicine
DX: I48.91 Unspecified atrial fibrillation (principal); Z95.0 Presence of cardiac pacemaker; R00.0 Tachycardia, unspecified
CPT/HCPCS: 36415; 71045; 80053; 82550; 83690; 84484; 85025; 93005; 93010; 99284

== ENCOUNTER → 2021-03-06 14:35 | Outpatient (CLI) | payer OTHER, SELFPAY ==
--- NOTE | 2021-03-06 | DI.ECHO.S_ITS ---
Version: 1 Study ID: [id number] [place] [address] Name: YENY SANDERS Study Date: 03/06/2021, 2: 59 PM : 1945 BP: 113 / 65 mmHg Gender: Male Height: 69 in Age: 75 Years Weight: 215.004 lb BSA: 2.13 mA? Ordering: GOVIND TAPIA Referring: GOVIND TAPIA Clinician: Karel Mosley Reason For Study: Congestive Heart Failure History: Summary Statements Normal sinus rhythm with RV pacing. Normal LV size with mild concentric LVH; cardiomyopathy is present with EF of 35-40%. There is septal dyssynchrony consistent with RV pacing. No significant valvular abnormalities. Mild LA enlargement; otherwise normal chamber sizes. Compared to prior echo 05/2020 lV is slighly less dynamic. Procedure: A two-dimensional transthoracic echocardiogram with color flow and Doppler was performed. The study quality was technically adequate. Comparison is made with the echocardiogram of 05/27/2020. Left Ventricle: Diastolic function could not be accurately assessed due to paced rhythm. Left ventricular systolic function is moderately reduced. The ejection fraction is estimated to be 35-40%. The left ventricle is normal in size and wall thickness. There is septal wall hypokinesis. There is apical hypokinesis. Right Ventricle: The right ventricular systolic function is normal. The right ventricle is mildly dilated. Atria: There is no Doppler evidence for an interatrial shunt. The left atrium is mildly dilated. Right atrial size is normal. Mitral Valve: There is mild to moderate mitral regurgitation. The mitral valve leaflets appear mildly thickened, but open well. Aortic Valve: There is trace aortic regurgitation. There is mild aortic valve sclerosis. Tricuspid Valve: There is mild to moderate tricuspid regurgitation. The right ventricular systolic pressure is estimated to be at least 64 mmHg based on an estimated right atrial pressure of 8 mm Hg. The tricuspid valve is normal in structure and function. Pulmonic Valve: There is mild pulmonic regurgitation. The pulmonic valve is not well seen, but is grossly normal. Great Vessels: The ascending aorta is mildly enlarged. The aortic root is normal size. The IVC is of normal diameter and collapses less than 50% with a sniff. This suggests a right atrial pressure of 8 mm Hg. Pericardium/ Pleura: There is no pericardial effusion. There is no pleural effusion. 2D and M-Mode Measurements and Calculations LVIDd: 5.7 cm LVOT diam: 2.30 cm LVIDs: 4.5 cm Ao root diam: 3.3 cm IVSd: 0.90 cm asc Aorta Diam: 3.7 cm LVPWd: 0.90 cm LV posey. diameter/BSA (cm/m^2): 2.7 LV sys. diameter/BSA (cm/m^2): 2.11 IVC diam: 1.83 cm TAPSE_phl: 2.14 cm LA A4 area: 24.0 drill runner? RA long axis: 5.2 cm LA A2 area: 22.0 drill runner? LA length (vol): 5.7 cm LA vol: 78.1 ml LA vol index: 36.7 ml/mA? Doppler Measurements and Calculations Ao V2 max: 96.1 cm/sec LVOT Max Wilbur: 68.5 cm/sec Ao V2 mean: 74.2 cm/sec LV V1 max P.88 mmHg Ao V2 VTI: 21.5 cm LV V1 VTI: 17.3 cm Ao max P.0 mmHg Ao mean P.00 mmHg JUAN(I,D): 3.3 drill runner? JUAN(V,D): 3.0 drill runner? JUAN indexed to BSA (cm^2/m^2): 1.57 sev ratio: 0.80 TR max wilbur: 373.0 cm/sec TR max P.7 mmHg Electronically signed by: Govind Tapia M.D. 03/07/2021, 5: 06 PM
== END ==
PROVIDERS: PCP Internal Medicine; Referring Provider Internal Medicine; Visit Provider Internal Medicine
DX: I08.3 Combined rheumatic disorders of mitral, aortic and tricuspid valves (principal); I77.89 Other specified disorders of arteries and arterioles; I50.9 Heart failure, unspecified; I42.9 Cardiomyopathy, unspecified
CPT/HCPCS: 93306

== ENCOUNTER 2021-04-25 22:49 | Emergency (ER) | payer OTHER, SELFPAY ==
--- NOTE | 2021-04-25 | DI.RAD.S_ITS ---
PROCEDURE: XR RIBS LT 2V INDICATIONS: FALL TECHNIQUE: 2 views of the left ribs were acquired. COMPARISON: None. FINDINGS: Surgical changes and devices: Pacemaker. Bones and chest wall: No fractures or dislocations. No suspicious bony lesions. Overlying soft tissues appear unremarkable. Lungs and pleura: The visualized lung appears clear. No pleural effusions or pneumothorax are visible. IMPRESSION: No evidence displaced left rib fracture. Dictated by: James Moreno M.D. on 04/26/2021 at 0:11 Approved by: James Moreno M.D. on 04/26/2021 at 0:11
[2021-04-25 23:00] VITALS: BP 149/67; PULSE 60; RESP 18; TEMP 36.3; O2SAT 97
--- NOTE | 2021-04-25 23:12 | DI.RAD.S_ITS ---
PROCEDURE: XR CHEST 2V INDICATIONS: fell TECHNIQUE: 2 views of the chest were acquired. COMPARISON: [facility], CR, XR CHEST 1V, 01/11/2021, 16:32. FINDINGS: Surgical changes and devices: Pacemaker Lungs and pleura: Lungs are clear. No pleural effusions or pneumothorax. Mediastinum: Mediastinal contours are normal. Mild cardiomegaly. Bones and chest wall: No suspicious bony abnormalities. Soft tissues appear unremarkable. IMPRESSION: Mild cardiomegaly. No evidence acute pulmonary process. Dictated by: James Moreno M.D. on 04/26/2021 at 0:10 Approved by: James Moreno M.D. on 04/26/2021 at 0:10
[2021-04-26 00:24] VITALS: BP 176/75; PULSE 60; RESP 16
--- NOTE | 2021-04-26 02:12 | ED_ITS ---
HPI - Chest Pain General Chief Complaint: Chest Pain Stated Complaint: lt sided rib pain s/p fall Time Seen by Provider: 04/26/21 01:00 Source: patient Mode of arrival: Wheelchair Limitations: no limitations History of Present Illness HPI narrative: 75-year-old gentleman with complex medical history was at the [facility] this evening in his he was going to leave, he stumbled fell forward landing against the edge of a table with his inhaler in his breast pocket. He is having significant pain left anterior axillary line where the point of maximum impact was. He comes to the ER for further evaluation. He states that he is at his usual baseline, well enough to be out at the [facility] this evening. Aside from the rib pain on the left side he has no specific concerns or complaints. Related Data Home Medications Medication Instructions Recorded Confirmed clonazepam 0.5 mg tablet 0.5 mg PO TID PRN MDD 3 05/26/20 01/11/21 flecainide 150 mg tablet 150 mg PO Q12H 05/26/20 01/11/21 levothyroxine 137 mcg tablet 137 mcg PO DAILY 05/26/20 01/11/21 metoprolol tartrate 50 mg tablet 200 mg PO BID 05/26/20 01/11/21 simvastatin 20 mg tablet 20 mg PO BEDTIME 05/26/20 01/11/21 tamsulosin 0.4 mg capsule 0.4 mg PO DAILY 05/26/20 01/11/21 potassium chloride 10 mEq 10 meq PO DAILY 01/11/21 01/11/21 tablet,extended release torsemide 20 mg tablet 20 mg PO DAILY 01/11/21 01/11/21 Previous Rx's Medication Instructions Recorded aspirin 81 mg tablet,delayed 81 mg PO DAILY #30 tab 05/27/20 release tramadol 50 mg tablet 50 mg PO Q8H PRN #14 tab 04/26/21 Allergies Allergy/AdvReac Type Severity Reaction Status Date / Time No Known Drug Allergies Allergy Verified 01/11/21 16:28 Review of Systems Review of Systems Narrative: Remainder of complete review of systems is otherwise unremarkable except for that included in the HPI. Patient History Medical History Brain tumor History of thyroid irradiation Hypothyroidism Kidney stones Paroxysmal atrial fibrillation Surgical History History of cataract surgery History of craniotomy History of cystoscopy History of hand surgery History of knee surgery History of lithotripsy History of permanent cardiac pacemaker placement Family History Father Pneumonia Mother Cancer Brother Cancer Social History household members: none Smoking Status: Never smoker alcohol intake: current Smoking Status: Never smoker alcohol intake frequency: a few times a month Substance Use Type: does not use Exam Narrative Exam Narrative: General: Alert appropriate in no acute distress Respiratory: Able to speak in full sentences, no obvious respiratory distress Chest: No bruising or contusion over the area of concern for. He is tender left side anterior axillary line rib 10. There is no subcutaneous air Skin: No obvious rashes, warm and dry Neurologic: Grossly intact no obvious asymmetries or abnormalities Psych: appropriate insight and affect, cooperative Initial Vital Signs Initial Vital Signs: Vital Signs Temperature 97.3 F L 04/25/21 23:00 Pulse Rate 60 04/25/21 23:00 Respiratory Rate 18 04/25/21 23:00 Blood Pressure 149/67 H 04/25/21 23:00 Pulse Oximetry 97 04/25/21 23:00 Course Orders Ordered: ED Orders 04/25/21 23:12 Chest [XR chest 2V] Stat 04/26/21 00:28 EKG-12 Lead Routine Vital Signs Vital signs: Vital Signs - 8 hr 04/25/21 23:00 04/26/21 00:24 Temperature 97.3 F L Pulse Rate 60 60 Respiratory Rate 18 16 Blood Pressure 149/67 H 176/75 H Pulse Oximetry 97 MDM - Chest Pain Imaging Data Chest x-ray: Radiologist's Impression: FINDINGS:? ? Surgical changes and devices:? Pacemaker.? ? Bones and chest wall:? No fractures or dislocations.? No suspicious bony lesions.? Overlying soft tissues appear unremarkable.? ? Lungs and pleura:? The visualized lung appears clear.? No pleural effusions or pneumothorax are visible.? ? IMPRESSION:? No evidence displaced left rib fracture. ? ? Dictated by: James Moreno M.D. on 04/26/2021 at 0:11? ? FINDINGS:? ? Surgical changes and devices:? Pacemaker ? Lungs and pleura:? Lungs are clear.? No pleural effusions or pneumothorax.? ? Mediastinum:? Mediastinal contours are normal.? Mild cardiomegaly. ? Bones and chest wall:? No suspicious bony abnormalities.? Soft tissues appear unremarkable.? ? IMPRESSION:? Mild cardiomegaly. No evidence acute pulmonary process. ? ? ? Dictated by: James Moreno M.D. on 04/26/2021 at 0:10? MDM Narrative Medical decision making narrative: 75-year-old man with complicated medical history [place] fell against a table landed on the left side with his inhaler causing point tenderness to the rib and he came to make sure that he did not have a rib fracture. He in fact does not. He is given an incentive spi rometer with instructions in its use to prevent complications from splinting and guarding of the ribs. He is given a prescription for tramadol as this has been helpful with previous musculoskeletal injuries for him. He is safe for home discharge Discharge Plan Departure Patient Disposition: Home Clinical Impression: Contusion of rib on left side Qualifiers: Encounter type: initial encounter Qualified Code(s): S20.212A - Contusion of left front wall of thorax, initial encounter Instructions: DI for Rib Contusion Activity Restrictions/Additional Instructions: Thank you for coming in today After falling and landing on your left ribs with the inhaler in the way, you bruised your ribs but you did not break anything. There is no evidence of collapsed lung or other complications. You can use 1 tramadol and 1 Tylenol every 6 hours if the pain is severe. Please do use the incentive spirometer as instructed to keep your lungs well inflated and avoid developing pneumonia. I hope you feel better Prescriptions: New tramadol 50 mg tablet 50 mg PO Q8H PRN (Reason: pain) Qty: 14 RF: 0 No Action torsemide 20 mg tablet 20 mg PO DAILY RF: 0 potassium chloride 10 mEq tablet extended release 10 meq PO DAILY RF: 0 levothyroxine 137 mcg Tablet 137 mcg PO DAILY RF: 0 flecainide 150 mg Tablet 150 mg PO Q12H RF: 0 clonazepam 0.5 mg Tablet 0.5 mg PO TID MDD 3 PRN (Reason: Anxiety) RF: 0 tamsulosin 0.4 mg Capsule 0.4 mg PO DAILY RF: 0 simvastatin 20 mg Tablet 20 mg PO BEDTIME RF: 0 metoprolol tartrate 50 mg Tablet 200 mg PO BID RF: 0 aspirin 81 mg Tablet,Delayed Release (Dr/Ec) 81 mg PO DAILY Qty: 30 RF: 0 Referrals: To Kaye MD [Primary Care Provider] -
--- NOTE | 2021-04-26 02:25 | PC.NURSE ---
teaching done on coughing and deep breathing.
== END 2021-04-26 02:25 | disposition home or self-care (01) ==
PROVIDERS: Emergency Provider Emergency Medicine; PCP Internal Medicine
DX: S20.212A Contusion of left front wall of thorax, initial encounter (principal); R03.0 Elevated blood-pressure reading, without diagnosis of hypertension; W01.190A Fall on same level from slipping, tripping and stumbling with subsequent striking against furniture, initial encounter; Z95.0 Presence of cardiac pacemaker
CPT/HCPCS: 71046; 71100; 93005; 93010; 99283; 99284